=== PATIENT | female | born 1970 | race Caucasian/White ===

== ENCOUNTER → 2017-07-30 | Outpatient (CLI) | payer MEDICAID ==
[~2017-07-30] MED LIST: ALPR.5T PO; ALPR0.5T3 PO; BSP10T; CALC0.253; CALC0.253 PO; CARB400T; CHOL2000 PO; CYCL10TA9 PO; DIAZ5TAB3 PO; DICL50TA4 PO; FLUC200T45 PO; FLUO20CA25; FLUO20CA25 PO; GABA300C PO; HYDR-3720 PO; LEVO137T2; LEVO200T39 PO; LVT.1T PO; MELO7.5T PO; METR500T PO; NCT14P; NITR-65 PO; TRAM50TA2 PO; TRH2T; [UNRECOGNIZED DRUG - CODE]
--- NOTE | 2017-07-30 18:15 | Diagnostic Imaging Report ---
INDICATION: Digital mammogram bilateral screening. This study was compared to the prior exams of 03/10/16 and 02/05/15. At this time, there are no current complaints. The current study was also evaluated with a Computer Aided Detection (CAD) system. FINDINGS: The fibroglandular tissue in both breasts is heterogeneously dense. This does limit the sensitivity of this exam. Overall, there does not appear to have been any significant change when compared to the prior study. No primary or secondary sign of malignancy is noted. IMPRESSION: There is no radiographic evidence for malignancy. ACR BI-RADS Category 1: Negative. Result letter will be mailed to the patient. Note: At least 10% of breast cancer is not imaged by mammography. Dictated by: Dictated on workstation # [id number]
== END ==
LOC: RAD 09:51
PROVIDERS: ATTEND Family Medicine
DX: Z12.31 Encounter for screening mammogram for malignant neoplasm of breast (principal)
CPT/HCPCS: 77067

== ENCOUNTER → 2018-10-06 | Outpatient (CLI) | payer MEDICAID ==
--- NOTE | 2018-10-06 08:47 | Diagnostic Imaging Report ---
PROCEDURE: MR imaging of the brain without contrast. TECHNIQUE: Multiplanar, multisequence MR imaging of the brain was performed without contrast. INDICATION: Worsening headache and visual changes. Correlation is made with prior MRI of the brain from 09/24/2014. FINDINGS: The ventricular size is normal. No hydrocephalus is identified. No diffusion restriction is seen to suggest acute ischemia. The normal expected flow-voids within the carotid siphons identified. Small extra-axial mass along the anterior falx to the left of midline is again noted, similar in size approximately 9 mm. No acute intra-axial or extra-axial hemorrhage is detected. Corpus callosum is unremarkable. The sella and parasellar structures are unremarkable. IMPRESSION: Stable noncontrast MRI of the brain when compared with exam from 09/24/2014. No acute intracranial process is detected. Extra-axial mass along the anterior falx previously noted appear stable and again most likely represents a meningioma. Dictated by: Dictated on workstation # [id number]
== END ==
LOC: RAD 07:52
PROVIDERS: ATTEND Psychiatry & Neurology Neurology
DX: G93.89 Other specified disorders of brain (principal); H53.8 Other visual disturbances; R51 Headache; Z86.011 Personal history of benign neoplasm of the brain
CPT/HCPCS: 70551

== ENCOUNTER 2018-10-30 09:58 | Emergency (ER) | payer MEDICAID ==
[~2018-10-30] VITALS: Ht 170.2 cm; Wt 77.1 kg
--- OUTSIDE RECORDS SUMMARY | 2018-10-30 10:03 | XMS REPORT | Clinical Summary ---
Author Author [facility] Organization [facility] Address Unknown Phone Unavailable Care Team Providers Care Social Professionals Name Role Phone Patrizia Diaz MD Unavailable Source Comments Some departments are not documenting in the electronic medical record. If you do not see the information that you expected, contact Release of Information in the Health Information Management department at [phone] for further assistance in locating additional records.[facility] Allergies Comments Active Allergy Reactions Severity Noted Date Allergy recorded in SMS: Tape~Reactions: BLISTERS Adhesive Tape High 07/27/2006 Allergy recorded in SMS: Aspirin~Reactions: RASH Aspirin 07/27/2006 Allergy recorded in SMS: Iodine~Reactions: BLISTERS Iodine High 07/27/2006 Allergy recorded in SMS: Latex~Reactions: BLISTERS Latex High 07/27/2006 Allergy recorded in SMS: Morphine~Reactions: ANAPHYLAXIS Morphine High 07/27/2006 Allergy recorded in SMS: Penicillin~Reactions: ANAPHYLAXIS Penicillins High 07/27/2006 Medications Not on file Active Problems Not on file Social History Date Tobacco Use Types Packs/Day Years Used Never Assessed Sex Assigned at Date Recorded Not on file Industry Job Start Date Occupation Not on file Not on file Not on file Travel End Travel History Travel Start No recent travel history available. Last Filed Vital Signs Not on file Plan of Treatment Health Maintenance Due Date Last Done Comments PHYSICAL (COMPREHENSIVE) 1977 EXAM HIV SCREENING 1985 DTAP/TDAP VACCINES (1 - 1988 Tdap) CERVICAL CANCER SCREENING 2000 BREAST CANCER SCREENING 2010 INFLUENZA VACCINE 02/16/2019 Results Not on filefrom Last 3 Months
--- OUTSIDE RECORDS SUMMARY | 2018-10-30 10:03 | XMS REPORT | Clinical Summary ---
Author Author [facility] Organization [facility] Address Unknown Phone Unavailable Care Team Providers Care Wellness Rn Name Role Phone PCP Unavailable Allergies Not on File Current Medications Not on file Active Problems Not on file Social History Tobacco Use Types Packs/Day Years Used Date Never Assessed Sex Assigned at Date Recorded Not on file Last Filed Vital Signs Not on file Plan of Treatment Not on file Results Not on filefrom Last 3 Months
--- OUTSIDE RECORDS SUMMARY | 2018-10-30 10:07 | XMS REPORT | Continuity of Care Document ---
Author Organization Unknown Address Unknown Allergies Active Description Code Type Severity Reaction Onset Reported/Identified Relationship to Patient Clinical Status Yes adhesives OA N/A N /A 07/14/2011 Yes Iodine Drug Allergy N/A N/A 07/14/2011 Yes LaMICtal Drug Allergy N/A N/A 07/14/2011 Yes latex OA N/A N/A 07/14/2011 Yes morphine Drug Allergy N/A N/A 07/14/2011 Yes penicillamine Drug Allergy N/ A N/A 07/14/2011 Yes adhesives OA 07/14/2011 Yes Iodine Drug Allergy 07/14/2011 Yes LaMICtal Drug Allergy 07/14/2011 Yes latex OA 07/14/2011 Yes morphine Drug Allergy 07/14/2011 Yes penicillamine Drug Allergy 07/14/2011 Yes aspirin Drug Allergy N/A N/A 09/15/2013 Yes Cymbalta Drug Allergy N/A N/A 09/15/2013 Medications There is no data. Problems Date Dx Coded Attending Type Code Diagnosis Diagnosed By 02/14/2008 ANANYA MCBRIDE PSYD 296.89 MO BIPOLAR II 02/14/2008 ANANYA MCBRIDE PSYD L 301.83 PD BORDERLINE 02/14/2008 ANANYA MCBRIDE PSYD L 309.81 AN PTSD 02/14/2008 ANANYA MCBRIDE PSYD L 296.89 MO BIPOLAR II 02/14/2008 ANANYA MCBRIDE PSYD L 301.83 PD BORDERLINE 02/14/2008 ANANYA MCBRIDE PSYD L 309.81 AN PTSD 02/14/2008 ANANYA MCBRIDE PSYD L 296.89 MO BIPOLAR II 02/14/2008 ANANYA MCBRIDE PSYD L 301.83 PD BORDERLINE 02/14/2008 ANANYA MCBRIDE PSYD L 309.81 AN PTSD 02/14/2008 296.89 MO BIPOLAR II 02/14/2008 301.83 PD BORDERLINE 02/14/2008 309.81 AN PTSD 02/14/2008 ANANYA MCBRIDE PSYD ANN L 296.89 MO BIPOLAR II 02/14/2008 ANANYA MCBRIDE PSYD ANN L 301.83 PD BORDERLINE 02/14/2008 ANANYA MCBRIDE PSYD ANN L 309.81 AN PTSD 02/14/2008 ANANYA MCBRIDE PSYD ANN L 296.89 MO BIPOLAR II 02/14/2008 ANANYA MCBRIDE PSYD ANN L 301.83 PD BORDERLINE 02/14/2008 ANANYA MCBRIDE PSYD ANN L 309.81 AN PTSD 02/14/2008 296.89 MO BIPOLAR II 02/14/2008 301.83 PD BORDERLINE 02/14/2008 309.81 AN PTSD 02/14/2008 296.89 MO BIPOLAR II 02/14/2008 301.83 PD BORDERLINE 02/14/2008 309.81 AN PTSD 02/14/2008 296.89 MO BIPOLAR II 02/14/2008 301.83 PD BORDERLINE 02/14/2008 309.81 AN PTSD 02/14/2008 296.89 MO BIPOLAR II 02/14/2008 301.83 PD BORDERLINE 02/14/2008 309.81 AN PTSD 02/14/2008 296.89 MO BIPOLAR II 02/14/2008 301.83 PD BORDERLINE 02/14/2008 309.81 AN PTSD 02/14/2008 ANANYA MCBRIDE PSYD L 296.89 MO BIPOLAR II 02/14/2008 ANANYA MCBRIDE PSYD L 301.83 PD BORDERLINE 02/14/2008 ANANYA MCBRIDE PSYD ANN L 309.81 AN PTSD 02/14/2008 ANANYA MCBRIDE PSYD ANN L 296.89 MO BIPOLAR II 02/14/2008 ANANYA MCBRIDE PSYD ANN L 301.83 PD BORDERLINE 02/14/2008 ANANYA MCBRIDE PSYD ANN L 309.81 AN PTSD 02/14/2008 ANANYA MCBRIDE PSYD ANN L 296.89 MO BIPOLAR II 02/14/2008 ANANYA MCBRIDE PSYD ANN L 301.83 PD BORDERLINE 02/14/2008 ANANYA MCBRIDE PSYD ANN L 309.81 AN PTSD 02/14/2008 ANANYA MCBRIDE PSYD ANN L 296.89 MO BIPOLAR II 02/14/2008 MCCLEEARY PSYD, CHRISTOPHER L 301.83 PD BORDERLINE 02/14/2008 ANANYA MCBRIDE PSYD ANN L 309.81 AN PTSD 02/14/2008 ANANYA MCBRIDE PSYD ANN L 296.89 MO BIPOLAR II 02/14/2008 ANANYA MCBRIDE PSYD ANN L 301.83 PD BORDERLINE 02/14/2008 ANANYA MCBRIDE PSYD ANN L 309.81 AN PTSD 02/14/2008 ANANYA MCBRIDE PSYD ANN L 296.89 MO BIPOLAR II 02/14/2008 ANANYA MCBRIDE PSYD ANN L 301.83 PD BORDERLINE 02/14/2008 ANANYA MCBRIDE PSYD ANN L 309.81 AN PTSD 02/14/2008 ANANYA MCBRIDE PSYD ANN L 296.89 MO BIPOLAR II 02/14/2008 ANANYA MCBRIDE PSYD ANN L 301.83 PD BORDERLINE 02/14/2008 ANANYA MCBRIDE PSYD ANN L 309.81 AN PTSD 02/14/2008 ANANYA MCBRIDE PSYD ANN L 296.89 MO BIPOLAR II 02/14/2008 ANANYA MCBRIDE PSYD ANN L 301.83 PD BORDERLINE 02/14/2008 ANANYA MCBRIDE PSYD ANN L 309.81 AN PTSD 02/14/2008 ANANYA MCBRIDE PSYD ANN L 296.89 MO BIPOLAR II 02/14/2008 ANANYA MCBRIDE PSYD ANN L 301.83 PD BORDERLINE 02/14/2008 ANANYA MCBRIDE PSYD ANN L 309.81 AN PTSD 02/14/2008 ANANYA MCBRIDE PSYD ANN L 296.89 MO BIPOLAR II 02/14/2008 ANANYA MCBRIDE PSYD ANN L 301.83 PD BORDERLINE 02/14/2008 ANANYA MCBRIDE PSYD ANN L 309.81 AN PTSD 02/14/2008 ANANYA MCBRIDE PSYD ANN L 296.89 MO BIPOLAR II 02/14/2008 ANANYA MCBRIDE PSYD ANN L 301.83 PD BORDERLINE 02/14/2008 ANANYA MCBRIDE PSYD ANN L 309.81 AN PTSD 02/14/2008 ANANYA MCBRIDE PSYD ANN L 296.89 MO BIPOLAR II 02/14/2008 ANANYA MCBRIDE PSYD ANN L 301.83 PD BORDERLINE 02/14/2008 ANANYA MCBRIDE PSYD ANN L 309.81 AN PTSD 02/14/2008 RIOS DO, BOYD K 296.89 MO BIPOLAR II 02/14/2008 RIOS DO, BOYD K 301.83 PD BORDERLINE 02/14/2008 RIOS DO, BOYD K 309.81 AN PTSD 02/14/2008 ANANYA MCBRIDE PSYD ANN L 296.89 MO BIPOLAR II 02/14/2008 ANANYA MCBRIDE PSYD ANN L 301.83 PD BORDERLINE 02/14/2008 ANANYA MCBRIDE PSYD ANN L 309.81 AN PTSD 02/14/2008 ANANYA MCBRIDE PSYD ANN L 296.89 MO BIPOLAR II 02/14/2008 ANANYA MCBRIDE PSYD ANN L 301.83 PD BORDERLINE 02/14/2008 ANANYA MCBRIDE PSYD ANN L 309.81 AN PTSD 02/14/2008 ANANYA MCBRIDE PSYD ANN L 296.89 MO BIPOLAR II 02/14/2008 ANANYA MCBRIDE PSYD ANN L 301.83 PD BORDERLINE 02/14/2008 ANANYA MCBRIDE PSYD ANN L 309.81 AN PTSD 02/14/2008 LIDYA TORRES PA-C M 296.89 MO BIPOLAR II 02/14/2008 LIDYA TORRES PA-C M 301.83 PD BORDERLINE 02/14/2008 LIDYA TORRES PA-C M 309.81 AN PTSD 02/14/2008 ANANYA MCBRIDE PSYD ANN L 296.89 MO BIPOLAR II 02/14/2008 ANANYA MCBRIDE PSYD ANN L 301.83 PD BORDERLINE 02/14/2008 ANANYA MCBRIDE PSYD ANN L 309.81 AN PTSD 02/14/2008 RIOS DO BOYD K 296.89 MO BIPOLAR II 02/14/2008 RIOS DO BOYD K 301.83 PD BORDERLINE 02/14/2008 RIOS DO BOYD K 309.81 AN PTSD 02/14/2008 ANANYA MCBRIDE PSYD ANN L 296.89 MO BIPOLAR II 02/14/2008 ANANYA MCBRIDE PSYD ANN L 301.83 PD BORDERLINE 02/14/2008 ANANYA MCBRIDE PSYD ANN L 309.81 AN PTSD 02/14/2008 ANANYA MCBRIDE PSYD ANN L 296.89 MO BIPOLAR II 02/14/2008 ANANYA MCBRIDE PSYD ANN L 301.83 PD BORDERLINE 02/14/2008 ANANYA MCBRIDE PSYD ANN L 309.81 AN PTSD 02/14/2008 ANANYA MCBRIDE PSYD ANN L 296.89 MO BIPOLAR II 02/14/2008 ANANYA MCBRIDE PSYD ANN L 301.83 PD BORDERLINE 02/14/2008 ANANYA MCBRIDE PSYD ANN L 309.81 AN PTSD 02/14/2008 ANANYA MCBRIDE PSYD ANN L 296.89 MO BIPOLAR II 02/14/2008 ANANYA MCBRIDE PSYD ANN L 301.83 PD BORDERLINE 02/14/2008 ANANYA MCBRIDE PSYD ANN L 309.81 AN PTSD 02/14/2008 ANANYA MCBRIDE PSYD ANN L 296.89 MO BIPOLAR II 02/14/2008 ANANYA MCBRIDE PSYD ANN L 301.83 PD BORDERLINE 02/14/2008 ANANYA MCBRIDE PSYD ANN L 309.81 AN PTSD 02/14/2008 ANANYA MCBRIDE PSYD ANN L 296.89 MO BIPOLAR II 02/14/2008 ANANYA MCBRIDE PSYD ANN L 301.83 PD BORDERLINE 02/14/2008 ANANYA MCBRIDE PSYD ANN L 309.81 AN PTSD 02/14/2008 ANANYA MCBRIDE PSYD ANN L 296.89 MO BIPOLAR II 02/14/2008 ANANYA MCBRIDE PSYD ANN L 301.83 PD BORDERLINE 02/14/2008 ANANYA MCBRIDE PSYD ANN L 309.81 AN PTSD 02/14/2008 RIOS DO, BOYD K 296.89 MO BIPOLAR II 02/14/2008 RIOS DO, BOYD K 301.83 PD BORDERLINE 02/14/2008 RIOS DO, BOYD K 309.81 AN PTSD 02/14/2008 ANANYA MCBRIDE PSYD ANN L 296.89 MO BIPOLAR II 02/14/2008 ANANYA MCBRIDE PSYD ANN L 301.83 PD BORDERLINE 02/14/2008 ANANYA MCBRIDE PSYD ANN L 309.81 AN PTSD 02/14/2008 ANANYA MCBRIDE PSYD ANN L 296.89 MO BIPOLAR II 02/14/2008 ANANYA MCBRIDE PSYD ANN L 301.83 PD BORDERLINE 02/14/2008 ANANYA MCBRIDE PSYD ANN L 309.81 AN PTSD 02/14/2008 ANANYA MCBRIDE PSYD ANN L 296.89 MO BIPOLAR II 02/14/2008 ANANYA MCBRIDE PSYD ANN L 301.83 PD BORDERLINE 02/14/2008 ANANYA MCBRIDE PSYD ANN L 309.81 AN PTSD 02/14/2008 RIOS DO, BOYD K 296.89 MO BIPOLAR II 02/14/2008 RIOS DO, BOYD K 301.83 PD BORDERLINE 02/14/2008 RIOS DO, BOYD K 309.81 AN PTSD 02/14/2008 ANANYA MCBRIDE PSYD ANN L 296.89 MO BIPOLAR II 02/14/2008 ANANYA MCBRIDE PSYD ANN L 301.83 PD BORDERLINE 02/14/2008 ANANYA MCBRIDE PSYD ANN L 309.81 AN PTSD 02/14/2008 ANANYA MCBRIDE PSYD ANN L 296.89 MO BIPOLAR II 02/14/2008 ANANYA MCBRIDE PSYD ANN L 301.83 PD BORDERLINE 02/14/2008 ANANYA MCBRIDE PSYD ANN L 309.81 AN PTSD 02/14/2008 ALISSA PIERRE MD 296.89 MO BIPOLAR II 02/14/2008 ALISSA PIERRE MD 301.83 PD BORDERLINE 02/14/2008 ALISSA PIERRE MD 309.81 AN PTSD 02/14/2008 ANANYA MCBRIDE PSYD ANN L 296.89 MO BIPOLAR II 02/14/2008 ANANYA MCBRIDE PSYD ANN L 301.83 PD BORDERLINE 02/14/2008 ANANYA MCBRIDE PSYD ANN L 309.81 AN PTSD 02/14/2008 ANANYA MCBRIDE PSYD ANN L 296.89 MO BIPOLAR II 02/14/2008 ANANYA MCBRIDE PSYD ANN L 301.83 PD BORDERLINE 02/14/2008 ANANYA MCBRIDE PSYD ANN L 309.81 AN PTSD 02/14/2008 KAYCEE VELA ALTAGRACIA A 296.89 MO BIPOLAR II 02/14/2008 KAYCEE VELA, ALTAGRACIA A 301.83 PD BORDERLINE 02/14/2008 KAYCEE VELA, ALTAGRACIA A 309.81 AN PTSD 02/14/2008 ANANYA MCBRIDE PSYD ANN L 296.89 MO BIPOLAR II 02/14/2008 ANANYA MCBRIDE PSYD ANN L 301.83 PD BORDERLINE 02/14/2008 ANANYA MCBRIDE PSYD ANN L 309.81 AN PTSD 02/14/2008 RIOS DO, BOYD K 296.89 MO BIPOLAR II 02/14/2008 RIOS DO, BOYD K 301.83 PD BORDERLINE 02/14/2008 RIOS DO, BOYD K 309.81 AN PTSD 02/14/2008 ANANYA MCBRIDE PSYD ANN L 296.89 MO BIPOLAR II 02/14/2008 ANANYA MCBRIDE PSYD ANN L 301.83 PD BORDERLINE 02/14/2008 ANANYA MCBRIDE PSYD ANN L 309.81 AN PTSD 02/14/2008 ANANYA MCBRIDE PSYD ANN L 296.89 MO BIPOLAR II 02/14/2008 ANANYA MCBRIDE PSYD ANN L 301.83 PD BORDERLINE 02/14/2008 ANANYA MCBRIDE PSYD ANN L 309.81 AN PTSD 02/14/2008 ANANYA MCBRIDE PSYD ANN L 296.89 MO BIPOLAR II 02/14/2008 ANANYA MCBRIDE PSYD ANN L 301.83 PD BORDERLINE 02/14/2008 ANANYA MCBRIDE PSYD ANN L 309.81 AN PTSD 03/26/2008 ANANYA MCBRIDE PSYD ANN L 296.50 BIPOLAR I DISORDER MOST RECENT EPISODE (OR CURRENT) DEPRESSED UNSPECIFIED 03/26/2008 ANANYA MCBRIDE PSYD ANN L 307.47 SI DYSSOMNIA NOS 03/26/2008 ANANYA MCBRIDE PSYD ANN L 296.50 BIPOLAR I DISORDER MOST RECENT EPISODE (OR CURRENT) DEPRESSED UNSPECIFIED 03/26/2008 ANANYA MCBRIDE PSYD ANN L 307.47 SI DYSSOMNIA NOS 03/26/2008 ANANYA MCBRIDE PSYD ANN L 296.50 BIPOLAR I DISORDER MOST RECENT EPISODE (OR CURRENT) DEPRESSED UNSPECIFIED 03/26/2008 ANANYA MCBRIDE PSYD ANN L 307.47 SI DYSSOMNIA NOS 03/26/2008 296.50 BIPOLAR I DISORDER MOST RECENT EPISODE (OR CURRENT) DEPRESSED UNSPECIFIED 03/26/2008 307.47 SI DYSSOMNIA NOS 03/26/2008 ANANYA MCBRIDE PSYD ANN L 296.50 BIPOLAR I DISORDER MOST RECENT EPISODE (OR CURRENT) DEPRESSED UNSPECIFIED 03/26/2008 ANANYA MCBRIDE PSYD ANN L 307.47 SI DYSSOMNIA NOS 03/26/2008 ANANYA MCBRIDE PSYD ANN L 296.50 BIPOLAR I DISORDER MOST RECENT EPISODE (OR CURRENT) DEPRESSED UNSPECIFIED 03/26/2008 ANANYA MCBRIDE PSYD ANN L 307.47 SI DYSSOMNIA NOS 03/26/2008 296.50 BIPOLAR I DISORDER MOST RECENT EPISODE (OR CURRENT) DEPRESSED UNSPECIFIED 03/26/2008 307.47 SI DYSSOMNIA NOS 03/26/2008 296.50 BIPOLAR I DISORDER MOST RECENT EPISODE (OR CURRENT) DEPRESSED UNSPECIFIED 03/26/2008 307.47 SI DYSSOMNIA NOS 03/26/2008 296.50 BIPOLAR I DISORDER MOST RECENT EPISODE (OR CURRENT) DEPRESSED UNSPECIFIED 03/26/2008 307.47 SI DYSSOMNIA NOS 03/26/2008 296.50 BIPOLAR I DISORDER MOST RECENT EPISODE (OR CURRENT) DEPRESSED UNSPECIFIED 03/26/2008 307.47 SI DYSSOMNIA NOS 03/26/2008 296.50 BIPOLAR I DISORDER MOST RECENT EPISODE (OR CURRENT) DEPRESSED UNSPECIFIED 03/26/2008 307.47 SI DYSSOMNIA NOS 03/26/2008 ANANYA MCBRIDE PSYD ANN L 296.50 BIPOLAR I DISORDER MOST RECENT EPISODE (OR CURRENT) DEPRESSED UNSPECIFIED 03/26/2008 ANANYA MCBRIDE PSYD ANN L 307.47 SI DYSSOMNIA NOS 03/26/2008 ANANYA MCBRIDE PSYD ANN L 296.50 BIPOLAR I DISORDER MOST RECENT EPISODE (OR CURRENT) DEPRESSED UNSPECIFIED 03/26/2008 ANANYA MCBRIDE PSYD ANN L 307.47 SI DYSSOMNIA NOS 03/26/2008 ANANYA MCBRIDE PSYD ANN L 296.50 BIPOLAR I DISORDER MOST RECENT EPISODE (OR CURRENT) DEPRESSED UNSPECIFIED 03/26/2008 ANANYA MCBRIDE PSYD ANN L 307.47 SI DYSSOMNIA NOS 03/26/2008 ANANYA MCBRIDE PSYD ANN L 296.50 BIPOLAR I DISORDER MOST RECENT EPISODE (OR CURRENT) DEPRESSED UNSPECIFIED 03/26/2008 ANANYA MCBRIDE PSYD ANN L 307.47 SI DYSSOMNIA NOS 03/26/2008 ANANYA MCBRIDE PSYD ANN L 296.50 BIPOLAR I DISORDER MOST RECENT EPISODE (OR CURRENT) DEPRESSED UNSPECIFIED 03/26/2008 REED JUAREZ, CHRISTOPHER L 307.47 SI DYSSOMNIA NOS 03/26/2008 REED JUAREZ, CHRISTOPHER L 296.50 BIPOLAR I DISORDER MOST RECENT EPISODE (OR CURRENT) DEPRESSED UNSPECIFIED 03/26/2008 ANANYA MCBRIDE PSYD ANN L 307.47 SI DYSSOMNIA NOS 03/26/2008 REED JUAREZ, CHRISTOPHER L 296.50 BIPOLAR I DISORDER MOST RECENT EPISODE (OR CURRENT) DEPRESSED UNSPECIFIED 03/26/2008 REED JUAREZ CHRISTOPHER L 307.47 SI DYSSOMNIA NOS 03/26/2008 REED JUAREZ, CHRISTOPHER L 296.50 BIPOLAR I DISORDER MOST RECENT EPISODE (OR CURRENT) DEPRESSED UNSPECIFIED 03/26/2008 ANANYA MCBRIDE PSYD ANN L 307.47 SI DYSSOMNIA NOS 03/26/2008 ANANYA MCBRIDE PSYD ANN L 296.50 BIPOLAR I DISORDER MOST RECENT EPISODE (OR CURRENT) DEPRESSED UNSPECIFIED 03/26/2008 ANANYA MCBRIDE PSYD ANN L 307.47 SI DYSSOMNIA NOS 03/26/2008 REED JUAREZ, CHRISTOPHER L 296.50 BIPOLAR I DISORDER MOST RECENT EPISODE (OR CURRENT) DEPRESSED UNSPECIFIED 03/26/2008 ANANYA MCBRIDE PSYD ANN L 307.47 SI DYSSOMNIA NOS 03/26/2008 ANANYA MCBRIDE PSYD ANN L 296.50 BIPOLAR I DISORDER MOST RECENT EPISODE (OR CURRENT) DEPRESSED UNSPECIFIED 03/26/2008 ANANYA MCBRIDE PSYD ANN L 307.47 SI DYSSOMNIA NOS 03/26/2008 REED JUAREZ, CHRISTOPHER L 296.50 BIPOLAR I DISORDER MOST RECENT EPISODE (OR CURRENT) DEPRESSED UNSPECIFIED 03/26/2008 ANANYA MCBRIDE PSYD ANN L 307.47 SI DYSSOMNIA NOS 03/26/2008 BOYD RIOS DO 296.50 BIPOLAR I DISORDER MOST RECENT EPISODE (OR CURRENT) DEPRESSED UNSPECIFIED 03/26/2008 BOYD RIOS DO 307.47 SI DYSSOMNIA NOS 03/26/2008 ANANYA MCBRIDE PSYD ANN L 296.50 BIPOLAR I DISORDER MOST RECENT EPISODE (OR CURRENT) DEPRESSED UNSPECIFIED 03/26/2008 ANANYA MCBRIDE PSYD ANN L 307.47 SI DYSSOMNIA NOS 03/26/2008 ANANYA MCBRIDE PSYD ANN L 296.50 BIPOLAR I DISORDER MOST RECENT EPISODE (OR CURRENT) DEPRESSED UNSPECIFIED 03/26/2008 ANANYA MCBRIDE PSYD ANN L 307.47 SI DYSSOMNIA NOS 03/26/2008 ANANYA MCBRIDE PSYD ANN L 296.50 BIPOLAR I DISORDER MOST RECENT EPISODE (OR CURRENT) DEPRESSED UNSPECIFIED 03/26/2008 ANANYA MCBRIDE PSYD ANN L 307.47 SI DYSSOMNIA NOS 03/26/2008 LIDYA TORRES PA-C M 296.50 BIPOLAR I DISORDER MOST RECENT EPISODE (OR CURRENT) DEPRESSED UNSPECIFIED 03/26/2008 LIDYA TORRES PA-C 307.47 SI DYSSOMNIA NOS 03/26/2008 ANANYA MCBRIDE PSYD ANN L 296.50 BIPOLAR I DISORDER MOST RECENT EPISODE (OR CURRENT) DEPRESSED UNSPECIFIED 03/26/2008 ANANYA MCBRIDE PSYD ANN L 307.47 SI DYSSOMNIA NOS 03/26/2008 BOYD RIOS DO 296.50 BIPOLAR I DISORDER MOST RECENT EPISODE (OR CURRENT) DEPRESSED UNSPECIFIED 03/26/2008 BOYD RIOS DO 307.47 SI DYSSOMNIA NOS 03/26/2008 ANANYA MCBRIDE PSYD ANN L 296.50 BIPOLAR I DISORDER MOST RECENT EPISODE (OR CURRENT) DEPRESSED UNSPECIFIED 03/26/2008 ANANYA MCBRIDE PSYD ANN L 307.47 SI DYSSOMNIA NOS 03/26/2008 ANANYA MCBRIDE PSYD ANN L 296.50 BIPOLAR I DISORDER MOST RECENT EPISODE (OR CURRENT) DEPRESSED UNSPECIFIED 03/26/2008 ANANYA MCBRIDE PSYD ANN L 307.47 SI DYSSOMNIA NOS 03/26/2008 ANANYA MCBRIDE PSYD ANN L 296.50 BIPOLAR I DISORDER MOST RECENT EPISODE (OR CURRENT) DEPRESSED UNSPECIFIED 03/26/2008 ANANYA MCBRIDE PSYD ANN L 307.47 SI DYSSOMNIA NOS 03/26/2008 ANANYA MCBRIDE PSYD ANN L 296.50 BIPOLAR I DISORDER MOST RECENT EPISODE (OR CURRENT) DEPRESSED UNSPECIFIED 03/26/2008 ANANYA MCBRIDE PSYD ANN L 307.47 SI DYSSOMNIA NOS 03/26/2008 ANANYA MCBRIDE PSYD ANN L 296.50 BIPOLAR I DISORDER MOST RECENT EPISODE (OR CURRENT) DEPRESSED UNSPECIFIED 03/26/2008 ANANYA MCBRIDE PSYD ANN L 307.47 SI DYSSOMNIA NOS 03/26/2008 REED CRAIGYD, CHRISTOPHER L 296.50 BIPOLAR I DISORDER MOST RECENT EPISODE (OR CURRENT) DEPRESSED UNSPECIFIED 03/26/2008 ANANYA MCBRIDE PSYD ANN L 307.47 SI DYSSOMNIA NOS 03/26/2008 REED JUAREZ, CHRISTOPHER L 296.50 BIPOLAR I DISORDER MOST RECENT EPISODE (OR CURRENT) DEPRESSED UNSPECIFIED 03/26/2008 ANANYA MCBRIDE PSYD ANN L 307.47 SI DYSSOMNIA NOS 03/26/2008 BOYD RIOS DO K 296.50 BIPOLAR I DISORDER MOST RECENT EPISODE (OR CURRENT) DEPRESSED UNSPECIFIED 03/26/2008 BOYD RIOS DO 307.47 SI DYSSOMNIA NOS 03/26/2008 ANANYA MCBRIDE PSYD ANN L 296.50 BIPOLAR I DISORDER MOST RECENT EPISODE (OR CURRENT) DEPRESSED UNSPECIFIED 03/26/2008 ANANYA MCBRIDE PSYD ANN L 307.47 SI DYSSOMNIA NOS 03/26/2008 ANANYA MCBRIDE PSYD ANN L 296.50 BIPOLAR I DISORDER MOST RECENT EPISODE (OR CURRENT) DEPRESSED UNSPECIFIED 03/26/2008 ANANYA MCBRIDE PSYD ANN L 307.47 SI DYSSOMNIA NOS 03/26/2008 ANANYA MCBRIDE PSYD ANN L 296.50 BIPOLAR I DISORDER MOST RECENT EPISODE (OR CURRENT) DEPRESSED UNSPECIFIED 03/26/2008 ANANYA MCBRIDE PSYD ANN L 307.47 SI DYSSOMNIA NOS 03/26/2008 BOYD RIOS DO K 296.50 BIPOLAR I DISORDER MOST RECENT EPISODE (OR CURRENT) DEPRESSED UNSPECIFIED 03/26/2008 BOYD RIOS DO 307.47 SI DYSSOMNIA NOS 03/26/2008 ANANYA MCBRIDE PSYD ANN L 296.50 BIPOLAR I DISORDER MOST RECENT EPISODE (OR CURRENT) DEPRESSED UNSPECIFIED 03/26/2008 ANANYA MCBRIDE PSYD ANN L 307.47 SI DYSSOMNIA NOS 03/26/2008 ANANYA MCBRIDE PSYD ANN L 296.50 BIPOLAR I DISORDER MOST RECENT EPISODE (OR CURRENT) DEPRESSED UNSPECIFIED 03/26/2008 ANANYA MCBRIDE PSYD ANN L 307.47 SI DYSSOMNIA NOS 03/26/2008 ALISSA PIERRE MD 296.50 BIPOLAR I DISORDER MOST RECENT EPISODE (OR CURRENT) DEPRESSED UNSPECIFIED 03/26/2008 ALISSA PIERRE MD 307.47 SI DYSSOMNIA NOS 03/26/2008 ANANYA MCBRIDE PSYD ANN L 296.50 BIPOLAR I DISORDER MOST RECENT EPISODE (OR CURRENT) DEPRESSED UNSPECIFIED 03/26/2008 ANANYA MCBRIDE PSYD ANN L 307.47 SI DYSSOMNIA NOS 03/26/2008 ANANYA MCBRIDE PSYD ANN L 296.50 BIPOLAR I DISORDER MOST RECENT EPISODE (OR CURRENT) DEPRESSED UNSPECIFIED 03/26/2008 ANANYA MCBRIDE PSYD ANN L 307.47 SI DYSSOMNIA NOS 03/26/2008 KAYCEE VELA, ALTAGRACIA A 296.50 BIPOLAR I DISORDER MOST RECENT EPISODE (OR CURRENT) DEPRESSED UNSPECIFIED 03/26/2008 KAYCEE VELA ALTAGRACIA A 307.47 SI DYSSOMNIA NOS 03/26/2008 ANANYA MCBRIDE PSYD ANN L 296.50 BIPOLAR I DISORDER MOST RECENT EPISODE (OR CURRENT) DEPRESSED UNSPECIFIED 03/26/2008 ANANYA MCBRIDE PSYD ANN L 307.47 SI DYSSOMNIA NOS 03/26/2008 BOYD RIOS DO 296.50 BIPOLAR I DISORDER MOST RECENT EPISODE (OR CURRENT) DEPRESSED UNSPECIFIED 03/26/2008 BOYD RIOS DO 307.47 SI DYSSOMNIA NOS 03/26/2008 ANANYA MCBRIDE PSYD ANN L 296.50 BIPOLAR I DISORDER MOST RECENT EPISODE (OR CURRENT) DEPRESSED UNSPECIFIED 03/26/2008 ANANYA MCBRIDE PSYD ANN L 307.47 SI DYSSOMNIA NOS 03/26/2008 ANANYA MCBRIDE PSYD ANN L 296.50 BIPOLAR I DISORDER MOST RECENT EPISODE (OR CURRENT) DEPRESSED UNSPECIFIED 03/26/2008 ANANYA MCBRIDE PSYD ANN L 307.47 SI DYSSOMNIA NOS 03/26/2008 ANANYA MCBRIDE PSYD ANN L 296.50 BIPOLAR I DISORDER MOST RECENT EPISODE (OR CURRENT) DEPRESSED UNSPECIFIED 03/26/2008 ANANYA MCBRIDE PSYD ANN L 307.47 SI DYSSOMNIA NOS 04/12/2008 ANANYA MCBRIDE PSYD ANN L 300.01 AN PANIC DIS W/O AGORA 04/12/2008 ANANYA MCBRIDE PSYD ANN L 300.01 AN PANIC DIS W/O AGORA 04/12/2008 ANANYA MCBRIDE PSYD ANN L 300.01 AN PANIC DIS W/O AGORA 04/12/2008 300.01 AN PANIC DIS W/O AGORA 04/12/2008 ANANYA MCBRIDE PSYD ANN L 300.01 AN PANIC DIS W/O AGORA 04/12/2008 ANANYA MCBRIDE PSYD ANN L 300.01 AN PANIC DIS W/O AGORA 04/12/2008 300.01 AN PANIC DIS W/O AGORA 04/12/2008 300.01 AN PANIC DIS W/O AGORA 04/12/2008 300.01 AN PANIC DIS W/O AGORA 04/12/2008 300.01 AN PANIC DIS W/O AGORA 04/12/2008 300.01 AN PANIC DIS W/O AGORA 04/12/2008 ANANYA MCBRIDE PSYD ANN L 300.01 AN PANIC DIS W/O AGORA 04/12/2008 ANANYA MCBRIDE PSYD ANN L 300.01 AN PANIC DIS W/O AGORA 04/12/2008 ANANYA MCBRIDE PSYD ANN L 300.01 AN PANIC DIS W/O AGORA 04/12/2008 ANANYA MCBRIDE PSYD ANN L 300.01 AN PANIC DIS W/O AGORA 04/12/2008 ANANYA MCBRIDE PSYD ANN L 300.01 AN PANIC DIS W/O AGORA 04/12/2008 ANANYA MCBRIDE PSYD ANN L 300.01 AN PANIC DIS W/O AGORA 04/12/2008 ANANYA MCBRIDE PSYD ANN L 300.01 AN PANIC DIS W/O AGORA 04/12/2008 ANANYA MCBRIDE PSYD ANN L 300.01 AN PANIC DIS W/O AGORA 04/12/2008 ANANYA MCBRIDE PSYD ANN L 300.01 AN PANIC DIS W/O AGORA 04/12/2008 ANANYA MCBRIDE PSYD ANN L 300.01 AN PANIC DIS W/O AGORA 04/12/2008 ANANYA MCBRIDE PSYD ANN L 300.01 AN PANIC DIS W/O AGORA 04/12/2008 ANANYA MCBRIDE PSYD ANN L 300.01 AN PANIC DIS W/O AGORA 04/12/2008 BOYD RIOS DO K 300.01 AN PANIC DIS W/O AGORA 04/12/2008 ANANYA MCBRIDE PSYD ANN L 300.01 AN PANIC DIS W/O AGORA 04/12/2008 ANANYA MCBRIDE PSYD ANN L 300.01 AN PANIC DIS W/O AGORA 04/12/2008 ANANYA MCBRIDE PSYD ANN L 300.01 AN PANIC DIS W/O AGORA 04/12/2008 LIDYA TORRES PA-C 300.01 AN PANIC DIS W/O AGORA 04/12/2008 ANANYA MCBRIDE PSYD ANN L 300.01 AN PANIC DIS W/O AGORA 04/12/2008 BOYD RIOS DO K 300.01 AN PANIC DIS W/O AGORA 04/12/2008 ANANYA MCBRIDE PSYD ANN L 300.01 AN PANIC DIS W/O AGORA 04/12/2008 ANANYA MCBRIDE PSYD ANN L 300.01 AN PANIC DIS W/O AGORA 04/12/2008 ANANYA MCBRIDE PSYD ANN L 300.01 AN PANIC DIS W/O AGORA 04/12/2008 ANAYNA MCBRIDE PSYD ANN L 300.01 AN PANIC DIS W/O AGORA 04/12/2008 ANANYA MCBRIDE PSYD ANN L 300.01 AN PANIC DIS W/O AGORA 04/12/2008 ANANYA MCBRIDE PSYD ANN L 300.01 AN PANIC DIS W/O AGORA 04/12/2008 ANANYA MCBRIDE PSYD ANN L 300.01 AN PANIC DIS W/O AGORA 04/12/2008 BOYD RIOS DO K 300.01 AN PANIC DIS W/O AGORA 04/12/2008 ANANYA MCBRIDE PSYD ANN L 300.01 AN PANIC DIS W/O AGORA 04/12/2008 ANANYA MCBRIDE PSYD ANN L 300.01 AN PANIC DIS W/O AGORA 04/12/2008 ANANYA MCBRIDE PSYD ANN L 300.01 AN PANIC DIS W/O AGORA 04/12/2008 GABRIEL GARG BOYD K 300.01 AN PANIC DIS W/O AGORA 04/12/2008 ANANYA MCBRIDE PSYD ANN L 300.01 AN PANIC DIS W/O AGORA 04/12/2008 ANANYA MCBRIDE PSYD ANN L 300.01 AN PANIC DIS W/O AGORA 04/12/2008 ALISSA PIERRE MD 300.01 AN PANIC DIS W/O AGORA 04/12/2008 ANANYA MCBRIDE PSYD ANN L 300.01 AN PANIC DIS W/O AGORA 04/12/2008 ANANYA MCBRIDE PSYD ANN L 300.01 AN PANIC DIS W/O AGORA 04/12/2008 ALTAGRACIA BENOIT APRN 300.01 AN PANIC DIS W/O AGORA 04/12/2008 ANANYA MCBRIDE PSYD ANN L 300.01 AN PANIC DIS W/O AGORA 04/12/2008 GABRIEL GARG BOYD K 300.01 AN PANIC DIS W/O AGORA 04/12/2008 ANANYA MCBRIDE PSYD ANN L 300.01 AN PANIC DIS W/O AGORA 04/12/2008 ANANYA MCBRIDE PSYD ANN L 300.01 AN PANIC DIS W/O AGORA 04/12/2008 ANANYA MCBRIDE PSYD ANN L 300.01 AN PANIC DIS W/O AGORA 04/23/2008 ANANYA MCBRIDE PSYD ANN L 296.60 BIPOLAR I DISORDER MOST RECENT EPISODE (OR CURRENT) MIXED UNSPECIFIED 04/23/2008 ANANYA MCBRIDE PSYD ANN L 300.21 AN PANIC DIS W AGORA 04/23/2008 ANANYA MCBRIDE PSYD ANN L 995.20 UNSPECIFIED ADVERSE EFFECT OF UNSPECIFIED DRUG MEDICINAL AND BIOLOGICAL SUBSTANCE 04/23/2008 ANANYA MCBRIDE PSYD ANN L 296.60 BIPOLAR I DISORDER MOST RECENT EPISODE (OR CURRENT) MIXED UNSPECIFIED 04/23/2008 ANANYA MCBRIDE PSYD ANN L 300.21 AN PANIC DIS W AGORA 04/23/2008 ANANYA MCBRIDE PSYD ANN L 995.20 UNSPECIFIED ADVERSE EFFECT OF UNSPECIFIED DRUG MEDICINAL AND BIOLOGICAL SUBSTANCE 04/23/2008 ANANYA MCBRIDE PSYD ANN L 296.60 BIPOLAR I DISORDER MOST RECENT EPISODE (OR CURRENT) MIXED UNSPECIFIED 04/23/2008 ANANYA MCBRIDE PSYD ANN L 300.21 AN PANIC DIS W AGORA 04/23/2008 ANANYA MCBRIDE PSYD ANN L 995.20 UNSPECIFIED ADVERSE EFFECT OF UNSPECIFIED DRUG MEDICINAL AND BIOLOGICAL SUBSTANCE 04/23/2008 296.60 BIPOLAR I DISORDER MOST RECENT EPISODE (OR CURRENT) MIXED UNSPECIFIED 04/23/2008 300.21 AN PANIC DIS W AGORA 04/23/2008 995.20 UNSPECIFIED ADVERSE EFFECT OF UNSPECIFIED DRUG MEDICINAL AND BIOLOGICAL SUBSTANCE 04/23/2008 ANANYA MCBRIDE PSYD ANN L 296.60 BIPOLAR I DISORDER MOST RECENT EPISODE (OR CURRENT) MIXED UNSPECIFIED 04/23/2008 ANANYA MCBRIDE PSYD ANN L 300.21 AN PANIC DIS W AGORA 04/23/2008 ANANYA MCBRIDE PSYD ANN L 995.20 UNSPECIFIED ADVERSE EFFECT OF UNSPECIFIED DRUG MEDICINAL AND BIOLOGICAL SUBSTANCE 04/23/2008 ANANYA MCBRIDE PSYD ANN L 296.60 BIPOLAR I DISORDER MOST RECENT EPISODE (OR CURRENT) MIXED UNSPECIFIED 04/23/2008 ANANYA MCBRIDE PSYD ANN L 300.21 AN PANIC DIS W AGORA 04/23/2008 ANANYA MCBRIDE PSYD ANN L 995.20 UNSPECIFIED ADVERSE EFFECT OF UNSPECIFIED DRUG MEDICINAL AND BIOLOGICAL SUBSTANCE 04/23/2008 296.60 BIPOLAR I DISORDER MOST RECENT EPISODE (OR CURRENT) MIXED UNSPECIFIED 04/23/2008 300.21 AN PANIC DIS W AGORA 04/23/2008 995.20 UNSPECIFIED ADVERSE EFFECT OF UNSPECIFIED DRUG MEDICINAL AND BIOLOGICAL SUBSTANCE 04/23/2008 296.60 BIPOLAR I DISORDER MOST RECENT EPISODE (OR CURRENT) MIXED UNSPECIFIED 04/23/2008 300.21 AN PANIC DIS W AGORA 04/23/2008 995.20 UNSPECIFIED ADVERSE EFFECT OF UNSPECIFIED DRUG MEDICINAL AND BIOLOGICAL SUBSTANCE 04/23/2008 296.60 BIPOLAR I DISORDER MOST RECENT EPISODE (OR CURRENT) MIXED UNSPECIFIED 04/23/2008 300.21 AN PANIC DIS W AGORA 04/23/2008 995.20 UNSPECIFIED ADVERSE EFFECT OF UNSPECIFIED DRUG MEDICINAL AND BIOLOGICAL SUBSTANCE 04/23/2008 296.60 BIPOLAR I DISORDER MOST RECENT EPISODE (OR CURRENT) MIXED UNSPECIFIED 04/23/2008 300.21 AN PANIC DIS W AGORA 04/23/2008 995.20 UNSPECIFIED ADVERSE EFFECT OF UNSPECIFIED DRUG MEDICINAL AND BIOLOGICAL SUBSTANCE 04/23/2008 296.60 BIPOLAR I DISORDER MOST RECENT EPISODE (OR CURRENT) MIXED UNSPECIFIED 04/23/2008 300.21 AN PANIC DIS W AGORA 04/23/2008 995.20 UNSPECIFIED ADVERSE EFFECT OF UNSPECIFIED DRUG MEDICINAL AND BIOLOGICAL SUBSTANCE 04/23/2008 ANANYA MCBRIDE PSYD ANN L 296.60 BIPOLAR I DISORDER MOST RECENT EPISODE (OR CURRENT) MIXED UNSPECIFIED 04/23/2008 ANANYA MCBRIDE PSYD ANN L 300.21 AN PANIC DIS W AGORA 04/23/2008 ANANYA MCBRIDE PSYD ANN L 995.20 UNSPECIFIED ADVERSE EFFECT OF UNSPECIFIED DRUG MEDICINAL AND BIOLOGICAL SUBSTANCE 04/23/2008 ANANYA MCBRIDE PSYD ANN L 296.60 BIPOLAR I DISORDER MOST RECENT EPISODE (OR CURRENT) MIXED UNSPECIFIED 04/23/2008 ANANYA MCBRIDE PSYD ANN L 300.21 AN PANIC DIS W AGORA 04/23/2008 ANANYA MCBRIDE PSYD ANN L 995.20 UNSPECIFIED ADVERSE EFFECT OF UNSPECIFIED DRUG MEDICINAL AND BIOLOGICAL SUBSTANCE 04/23/2008 ANANYA MCBRIDE PSYD ANN L 296.60 BIPOLAR I DISORDER MOST RECENT EPISODE (OR CURRENT) MIXED UNSPECIFIED 04/23/2008 ANANYA MCBRIDE PSYD ANN L 300.21 AN PANIC DIS W AGORA 04/23/2008 ANANYA MCBRIDE PSYD ANN L 995.20 UNSPECIFIED ADVERSE EFFECT OF UNSPECIFIED DRUG MEDICINAL AND BIOLOGICAL SUBSTANCE 04/23/2008 ANANYA MCBRIDE PSYD ANN L 296.60 BIPOLAR I DISORDER MOST RECENT EPISODE (OR CURRENT) MIXED UNSPECIFIED 04/23/2008 ANANYA MCBRIDE PSYD ANN L 300.21 AN PANIC DIS W AGORA 04/23/2008 ANANYA MCBRIDE PSYD ANN L 995.20 UNSPECIFIED ADVERSE EFFECT OF UNSPECIFIED DRUG MEDICINAL AND BIOLOGICAL SUBSTANCE 04/23/2008 ANANYA MCBRIDE PSYD ANN L 296.60 BIPOLAR I DISORDER MOST RECENT EPISODE (OR CURRENT) MIXED UNSPECIFIED 04/23/2008 NAANYA MCBRIDE PSYD ANN L 300.21 AN PANIC DIS W AGORA 04/23/2008 ANANYA MCBRIDE PSYD ANN L 995.20 UNSPECIFIED ADVERSE EFFECT OF UNSPECIFIED DRUG MEDICINAL AND BIOLOGICAL SUBSTANCE 04/23/2008 ANANYA MCBRIDE PSYD ANN L 296.60 BIPOLAR I DISORDER MOST RECENT EPISODE (OR CURRENT) MIXED UNSPECIFIED 04/23/2008 ANANYA MCBRIDE PSYD ANN L 300.21 AN PANIC DIS W AGORA 04/23/2008 ANANYA MCBRIDE PSYD ANN L 995.20 UNSPECIFIED ADVERSE EFFECT OF UNSPECIFIED DRUG MEDICINAL AND BIOLOGICAL SUBSTANCE 04/23/2008 ANANYA MCBRIDE PSYD ANN L 296.60 BIPOLAR I DISORDER MOST RECENT EPISODE (OR CURRENT) MIXED UNSPECIFIED 04/23/2008 ANANYA MCBRIDE PSYD ANN L 300.21 AN PANIC DIS W AGORA 04/23/2008 ANANYA MCBRIDE PSYD ANN L 995.20 UNSPECIFIED ADVERSE EFFECT OF UNSPECIFIED DRUG MEDICINAL AND BIOLOGICAL SUBSTANCE 04/23/2008 ANANYA MCBRIDE PSYD ANN L 296.60 BIPOLAR I DISORDER MOST RECENT EPISODE (OR CURRENT) MIXED UNSPECIFIED 04/23/2008 ANANYA MCBRIDE PSYD ANN L 300.21 AN PANIC DIS W AGORA 04/23/2008 ANANYA MCBRIDE PSYD ANN L 995.20 UNSPECIFIED ADVERSE EFFECT OF UNSPECIFIED DRUG MEDICINAL AND BIOLOGICAL SUBSTANCE 04/23/2008 ANANYA MCBRIDE PSYD ANN L 296.60 BIPOLAR I DISORDER MOST RECENT EPISODE (OR CURRENT) MIXED UNSPECIFIED 04/23/2008 ANANYA MCBRIDE PSYD ANN L 300.21 AN PANIC DIS W AGORA 04/23/2008 ANANYA MCBRIDE PSYD ANN L 995.20 UNSPECIFIED ADVERSE EFFECT OF UNSPECIFIED DRUG MEDICINAL AND BIOLOGICAL SUBSTANCE 04/23/2008 ANANYA MCBRIDE PSYD ANN L 296.60 BIPOLAR I DISORDER MOST RECENT EPISODE (OR CURRENT) MIXED UNSPECIFIED 04/23/2008 ANANYA MCBRIDE PSYD ANN L 300.21 AN PANIC DIS W AGORA 04/23/2008 ANANYA MCBRIDE PSYD ANN L 995.20 UNSPECIFIED ADVERSE EFFECT OF UNSPECIFIED DRUG MEDICINAL AND BIOLOGICAL SUBSTANCE 04/23/2008 ANANYA MCBRIDE PSYD ANN L 296.60 BIPOLAR I DISORDER MOST RECENT EPISODE (OR CURRENT) MIXED UNSPECIFIED 04/23/2008 ANANYA MCBRIDE PSYD ANN L 300.21 AN PANIC DIS W AGORA 04/23/2008 ANANYA MCBRIDE PSYD ANN L 995.20 UNSPECIFIED ADVERSE EFFECT OF UNSPECIFIED DRUG MEDICINAL AND BIOLOGICAL SUBSTANCE 04/23/2008 ANANYA MCBRIDE PSYD ANN L 296.60 BIPOLAR I DISORDER MOST RECENT EPISODE (OR CURRENT) MIXED UNSPECIFIED 04/23/2008 ANANYA MCBRIDE PSYD ANN L 300.21 AN PANIC DIS W AGORA 04/23/2008 ANANYA MCBRIDE PSYD ANN L 995.20 UNSPECIFIED ADVERSE EFFECT OF UNSPECIFIED DRUG MEDICINAL AND BIOLOGICAL SUBSTANCE 04/23/2008 RIOS DO, BOYD K 296.60 BIPOLAR I DISORDER MOST RECENT EPISODE (OR CURRENT) MIXED UNSPECIFIED 04/23/2008 RIOS DO, BOYD K 300.21 AN PANIC DIS W AGORA 04/23/2008 RIOS DO, BOYD K 995.20 UNSPECIFIED ADVERSE EFFECT OF UNSPECIFIED DRUG MEDICINAL AND BIOLOGICAL SUBSTANCE 04/23/2008 ANANYA MCBRIDE PSYD ANN L 296.60 BIPOLAR I DISORDER MOST RECENT EPISODE (OR CURRENT) MIXED UNSPECIFIED 04/23/2008 ANANYA MCBRIDE PSYD ANN L 300.21 AN PANIC DIS W AGORA 04/23/2008 ANANYA MCBRIDE PSYD ANN L 995.20 UNSPECIFIED ADVERSE EFFECT OF UNSPECIFIED DRUG MEDICINAL AND BIOLOGICAL SUBSTANCE 04/23/2008 ANANYA MCBRIDE PSYD ANN L 296.60 BIPOLAR I DISORDER MOST RECENT EPISODE (OR CURRENT) MIXED UNSPECIFIED 04/23/2008 ANANYA MCBRIDE PSYD ANN L 300.21 AN PANIC DIS W AGORA 04/23/2008 ANANYA MCBRIDE PSYD ANN L 995.20 UNSPECIFIED ADVERSE EFFECT OF UNSPECIFIED DRUG MEDICINAL AND BIOLOGICAL SUBSTANCE 04/23/2008 ANANYA MCBRIDE PSYD ANN L 296.60 BIPOLAR I DISORDER MOST RECENT EPISODE (OR CURRENT) MIXED UNSPECIFIED 04/23/2008 ANANYA MCBRIDE PSYD ANN L 300.21 AN PANIC DIS W AGORA 04/23/2008 ANANYA MCBRIDE PSYD ANN L 995.20 UNSPECIFIED ADVERSE EFFECT OF UNSPECIFIED DRUG MEDICINAL AND BIOLOGICAL SUBSTANCE 04/23/2008 LIDYA TORRES PA-C 296.60 BIPOLAR I DISORDER MOST RECENT EPISODE (OR CURRENT) MIXED UNSPECIFIED 04/23/2008 LIDYA TORRES PA-C 300.21 AN PANIC DIS W AGORA 04/23/2008 LIDYA TORRES PA-C 995.20 UNSPECIFIED ADVERSE EFFECT OF UNSPECIFIED DRUG MEDICINAL AND BIOLOGICAL SUBSTANCE 04/23/2008 ANANYA MCBRIDE PSYD ANN L 296.60 BIPOLAR I DISORDER MOST RECENT EPISODE (OR CURRENT) MIXED UNSPECIFIED 04/23/2008 ANANYA MCBRIDE PSYD ANN L 300.21 AN PANIC DIS W AGORA 04/23/2008 ANANYA MCBRIDE PSYD ANN L 995.20 UNSPECIFIED ADVERSE EFFECT OF UNSPECIFIED DRUG MEDICINAL AND BIOLOGICAL SUBSTANCE 04/23/2008 RIOS DO, BOYD K 296.60 BIPOLAR I DISORDER MOST RECENT EPISODE (OR CURRENT) MIXED UNSPECIFIED 04/23/2008 RIOS DO, BOYD K 300.21 AN PANIC DIS W AGORA 04/23/2008 RIOS DO, BOYD K 995.20 UNSPECIFIED ADVERSE EFFECT OF UNSPECIFIED DRUG MEDICINAL AND BIOLOGICAL SUBSTANCE 04/23/2008 ANANYA MCBRIDE PSYD ANN L 296.60 BIPOLAR I DISORDER MOST RECENT EPISODE (OR CURRENT) MIXED UNSPECIFIED 04/23/2008 ANANYA MCBRIDE PSYD ANN L 300.21 AN PANIC DIS W AGORA 04/23/2008 ANANYA MCBRIDE PSYD ANN L 995.20 UNSPECIFIED ADVERSE EFFECT OF UNSPECIFIED DRUG MEDICINAL AND BIOLOGICAL SUBSTANCE 04/23/2008 ANANYA MCBRIDE PSYD ANN L 296.60 BIPOLAR I DISORDER MOST RECENT EPISODE (OR CURRENT) MIXED UNSPECIFIED 04/23/2008 ANANYA MCBRIDE PSYD ANN L 300.21 AN PANIC DIS W AGORA 04/23/2008 ANANYA MCBRIDE PSYD ANN L 995.20 UNSPECIFIED ADVERSE EFFECT OF UNSPECIFIED DRUG MEDICINAL AND BIOLOGICAL SUBSTANCE 04/23/2008 ANANYA MCBRIDE PSYD ANN L 296.60 BIPOLAR I DISORDER MOST RECENT EPISODE (OR CURRENT) MIXED UNSPECIFIED 04/23/2008 ANANYA MCBRIDE PSYD ANN L 300.21 AN PANIC DIS W AGORA 04/23/2008 ANANYA MCBRIDE PSYD ANN L 995.20 UNSPECIFIED ADVERSE EFFECT OF UNSPECIFIED DRUG MEDICINAL AND BIOLOGICAL SUBSTANCE 04/23/2008 ANANYA MCBRIDE PSYD ANN L 296.60 BIPOLAR I DISORDER MOST RECENT EPISODE (OR CURRENT) MIXED UNSPECIFIED 04/23/2008 ANANYA MCBRIDE PSYD ANN L 300.21 AN PANIC DIS W AGORA 04/23/2008 ANANYA MCBRIDE PSYD ANN L 995.20 UNSPECIFIED ADVERSE EFFECT OF UNSPECIFIED DRUG MEDICINAL AND BIOLOGICAL SUBSTANCE 04/23/2008 ANANYA MCBRIDE PSYD ANN L 296.60 BIPOLAR I DISORDER MOST RECENT EPISODE (OR CURRENT) MIXED UNSPECIFIED 04/23/2008 ANANYA MCBRIDE PSYD ANN L 300.21 AN PANIC DIS W AGORA 04/23/2008 ANANYA MCBRIDE PSYD ANN L 995.20 UNSPECIFIED ADVERSE EFFECT OF UNSPECIFIED DRUG MEDICINAL AND BIOLOGICAL SUBSTANCE 04/23/2008 ANANYA MCBRIDE PSYD ANN L 296.60 BIPOLAR I DISORDER MOST RECENT EPISODE (OR CURRENT) MIXED UNSPECIFIED 04/23/2008 ANANYA MCBRIDE PSYD ANN L 300.21 AN PANIC DIS W AGORA 04/23/2008 ANANYA MCBRIDE PSYD ANN L 995.20 UNSPECIFIED ADVERSE EFFECT OF UNSPECIFIED DRUG MEDICINAL AND BIOLOGICAL SUBSTANCE 04/23/2008 ANANYA MCBRIDE PSYD ANN L 296.60 BIPOLAR I DISORDER MOST RECENT EPISODE (OR CURRENT) MIXED UNSPECIFIED 04/23/2008 ANANYA MCBRIDE PSYD ANN L 300.21 AN PANIC DIS W AGORA 04/23/2008 ANANYA MCBRIDE PSYD ANN L 995.20 UNSPECIFIED ADVERSE EFFECT OF UNSPECIFIED DRUG MEDICINAL AND BIOLOGICAL SUBSTANCE 04/23/2008 RIOS DO BOYD K 296.60 BIPOLAR I DISORDER MOST RECENT EPISODE (OR CURRENT) MIXED UNSPECIFIED 04/23/2008 RIOS DO BOYD K 300.21 AN PANIC DIS W AGORA 04/23/2008 RIOS DO BOYD K 995.20 UNSPECIFIED ADVERSE EFFECT OF UNSPECIFIED DRUG MEDICINAL AND BIOLOGICAL SUBSTANCE 04/23/2008 ANANYA MCBRIDE PSYD ANN L 296.60 BIPOLAR I DISORDER MOST RECENT EPISODE (OR CURRENT) MIXED UNSPECIFIED 04/23/2008 ANANYA MCBRIDE PSYD ANN L 300.21 AN PANIC DIS W AGORA 04/23/2008 ANANYA MCBRIDE PSYD ANN L 995.20 UNSPECIFIED ADVERSE EFFECT OF UNSPECIFIED DRUG MEDICINAL AND BIOLOGICAL SUBSTANCE 04/23/2008 ANANYA MCBRIDE PSYD ANN L 296.60 BIPOLAR I DISORDER MOST RECENT EPISODE (OR CURRENT) MIXED UNSPECIFIED 04/23/2008 ANANYA MCBRIDE PSYD ANN L 300.21 AN PANIC DIS W AGORA 04/23/2008 ANANYA MCBRIDE PSYD ANN L 995.20 UNSPECIFIED ADVERSE EFFECT OF UNSPECIFIED DRUG MEDICINAL AND BIOLOGICAL SUBSTANCE 04/23/2008 ANANYA MCBRIDE PSYD ANN L 296.60 BIPOLAR I DISORDER MOST RECENT EPISODE (OR CURRENT) MIXED UNSPECIFIED 04/23/2008 ANANYA MCBRIDE PSYD ANN L 300.21 AN PANIC DIS W AGORA 04/23/2008 ANANYA MCBRIDE PSYD ANN L 995.20 UNSPECIFIED ADVERSE EFFECT OF UNSPECIFIED DRUG MEDICINAL AND BIOLOGICAL SUBSTANCE 04/23/2008 RIOS DO, BOYD K 296.60 BIPOLAR I DISORDER MOST RECENT EPISODE (OR CURRENT) MIXED UNSPECIFIED 04/23/2008 RIOS DO, BOYD K 300.21 AN PANIC DIS W AGORA 04/23/2008 RIOS DO, BOYD K 995.20 UNSPECIFIED ADVERSE EFFECT OF UNSPECIFIED DRUG MEDICINAL AND BIOLOGICAL SUBSTANCE 04/23/2008 ANANYA MCBRIDE PSYD ANN L 296.60 BIPOLAR I DISORDER MOST RECENT EPISODE (OR CURRENT) MIXED UNSPECIFIED 04/23/2008 ANANYA MCBRIDE PSYD ANN L 300.21 AN PANIC DIS W AGORA 04/23/2008 ANANYA MCBRIDE PSYD ANN L 995.20 UNSPECIFIED ADVERSE EFFECT OF UNSPECIFIED DRUG MEDICINAL AND BIOLOGICAL SUBSTANCE 04/23/2008 ANANYA MCBRIDE PSYD ANN L 296.60 BIPOLAR I DISORDER MOST RECENT EPISODE (OR CURRENT) MIXED UNSPECIFIED 04/23/2008 ANANYA MCBRIDE PSYD ANN L 300.21 AN PANIC DIS W AGORA 04/23/2008 ANANYA MCBRIDE PSYD ANN L 995.20 UNSPECIFIED ADVERSE EFFECT OF UNSPECIFIED DRUG MEDICINAL AND BIOLOGICAL SUBSTANCE 04/23/2008 ALISSA PIERRE MD 296.60 BIPOLAR I DISORDER MOST RECENT EPISODE (OR CURRENT) MIXED UNSPECIFIED 04/23/2008 ALISSA PIERRE MD 300.21 AN PANIC DIS W AGORA 04/23/2008 ALISSA PIERRE MD 995.20 UNSPECIFIED ADVERSE EFFECT OF UNSPECIFIED DRUG MEDICINAL AND BIOLOGICAL SUBSTANCE 04/23/2008 ANANYA MCBRIDE PSYD ANN L 296.60 BIPOLAR I DISORDER MOST RECENT EPISODE (OR CURRENT) MIXED UNSPECIFIED 04/23/2008 ANANYA MCBRIDE PSYD ANN L 300.21 AN PANIC DIS W AGORA 04/23/2008 ANANYA MCBRIDE PSYD ANN L 995.20 UNSPECIFIED ADVERSE EFFECT OF UNSPECIFIED DRUG MEDICINAL AND BIOLOGICAL SUBSTANCE 04/23/2008 ANANYA MCBRIDE PSYD ANN L 296.60 BIPOLAR I DISORDER MOST RECENT EPISODE (OR CURRENT) MIXED UNSPECIFIED 04/23/2008 ANANYA MCBRIDE PSYD ANN L 300.21 AN PANIC DIS W AGORA 04/23/2008 ANANYA MCBRIDE PSYD ANN L 995.20 UNSPECIFIED ADVERSE EFFECT OF UNSPECIFIED DRUG MEDICINAL AND BIOLOGICAL SUBSTANCE 04/23/2008 [employer]JOTTE [employer] INSTRUCTOR, ALTAGRACIA A 296.60 BIPOLAR I DISORDER MOST RECENT EPISODE (OR CURRENT) MIXED UNSPECIFIED 04/23/2008 RAJOTTE METEOROLOGY INSTRUCTOR, ALTAGRACIA A 300.21 AN PANIC DIS W AGORA 04/23/2008 RAJOTTE METEOROLOGY INSTRUCTOR, ALTAGRACIA A 995.20 UNSPECIFIED ADVERSE EFFECT OF UNSPECIFIED DRUG MEDICINAL AND BIOLOGICAL SUBSTANCE 04/23/2008 ANANYA MCBRIDE PSYD ANN L 296.60 BIPOLAR I DISORDER MOST RECENT EPISODE (OR CURRENT) MIXED UNSPECIFIED 04/23/2008 ANANYA MCBRIDE PSYD ANN L 300.21 AN PANIC DIS W AGORA 04/23/2008 ANANYA MCBRIDE PSYD ANN L 995.20 UNSPECIFIED ADVERSE EFFECT OF UNSPECIFIED DRUG MEDICINAL AND BIOLOGICAL SUBSTANCE 04/23/2008 RIOS DO, BOYD K 296.60 BIPOLAR I DISORDER MOST RECENT EPISODE (OR CURRENT) MIXED UNSPECIFIED 04/23/2008 RIOS DO, BOYD K 300.21 AN PANIC DIS W AGORA 04/23/2008 RIOS DO, BOYD K 995.20 UNSPECIFIED ADVERSE EFFECT OF UNSPECIFIED DRUG MEDICINAL AND BIOLOGICAL SUBSTANCE 04/23/2008 ANANYA MCBRIDE PSYD ANN L 296.60 BIPOLAR I DISORDER MOST RECENT EPISODE (OR CURRENT) MIXED UNSPECIFIED 04/23/2008 ANANYA MCBRIDE PSYD ANN L 300.21 AN PANIC DIS W AGORA 04/23/2008 ANANYA MCBRIDE PSYD ANN L 995.20 UNSPECIFIED ADVERSE EFFECT OF UNSPECIFIED DRUG MEDICINAL AND BIOLOGICAL SUBSTANCE 04/23/2008 ANANYA MCBRIDE PSYD ANN L 296.60 BIPOLAR I DISORDER MOST RECENT EPISODE (OR CURRENT) MIXED UNSPECIFIED 04/23/2008 ANANYA MCBRIDE PSYD ANN L 300.21 AN PANIC DIS W AGORA 04/23/2008 ANANYA MCBRIDE PSYD ANN L 995.20 UNSPECIFIED ADVERSE EFFECT OF UNSPECIFIED DRUG MEDICINAL AND BIOLOGICAL SUBSTANCE 04/23/2008 ANANYA MCBRIDE PSYD ANN L 296.60 BIPOLAR I DISORDER MOST RECENT EPISODE (OR CURRENT) MIXED UNSPECIFIED 04/23/2008 ANANYA MCBRIDE PSYD ANN L 300.21 AN PANIC DIS W AGORA 04/23/2008 ANANYA MCBRIDE PSYD ANN L 995.20 UNSPECIFIED ADVERSE EFFECT OF UNSPECIFIED DRUG MEDICINAL AND BIOLOGICAL SUBSTANCE 06/12/2008 ANANYA MCBRIDE PSYD ANN L 316 PF PSYCHIC FACTORS MED COND 06/12/2008 ANANYA MCBRIDE PSYD ANN L 346.90 MIGRAINE UNSPECIFIED WITHOUT INTRACTABLE MIGRAINE 06/12/2008 ANANYA MCBRIDE PSYD ANN L 316 PF PSYCHIC FACTORS MED COND 06/12/2008 ANANYA MCBRIDE PSYD ANN L 346.90 MIGRAINE UNSPECIFIED WITHOUT INTRACTABLE MIGRAINE 06/12/2008 ANANYA MCBRIDE PSYD ANN L 316 PF PSYCHIC FACTORS MED COND 06/12/2008 ANANYA MCBRIDE PSYD ANN L 346.90 MIGRAINE UNSPECIFIED WITHOUT INTRACTABLE MIGRAINE 06/12/2008 316 PF PSYCHIC FACTORS MED COND 06/12/2008 346.90 MIGRAINE UNSPECIFIED WITHOUT INTRACTABLE MIGRAINE 06/12/2008 ANANYA MCBRIDE PSYD ANN L 316 PF PSYCHIC FACTORS MED COND 06/12/2008 ANANYA MCBRIDE PSYD ANN L 346.90 MIGRAINE UNSPECIFIED WITHOUT INTRACTABLE MIGRAINE 06/12/2008 ANANYA MCBRIDE PSYD ANN L 316 PF PSYCHIC FACTORS MED COND 06/12/2008 ANANYA MCBRIDE PSYD ANN L 346.90 MIGRAINE UNSPECIFIED WITHOUT INTRACTABLE MIGRAINE 06/12/2008 316 PF PSYCHIC FACTORS MED COND 06/12/2008 346.90 MIGRAINE UNSPECIFIED WITHOUT INTRACTABLE MIGRAINE 06/12/2008 316 PF PSYCHIC FACTORS MED COND 06/12/2008 346.90 MIGRAINE UNSPECIFIED WITHOUT INTRACTABLE MIGRAINE 06/12/2008 316 PF PSYCHIC FACTORS MED COND 06/12/2008 346.90 MIGRAINE UNSPECIFIED WITHOUT INTRACTABLE MIGRAINE 06/12/2008 316 PF PSYCHIC FACTORS MED COND 06/12/2008 346.90 MIGRAINE UNSPECIFIED WITHOUT INTRACTABLE MIGRAINE 06/12/2008 316 PF PSYCHIC FACTORS MED COND 06/12/2008 346.90 MIGRAINE UNSPECIFIED WITHOUT INTRACTABLE MIGRAINE 06/12/2008 MCCLEEARY PSYD, CHRISTOPHER L 316 PF PSYCHIC FACTORS MED COND 06/12/2008 ANANYA MCBRIDE PSYD ANN L 346.90 MIGRAINE UNSPECIFIED WITHOUT INTRACTABLE MIGRAINE 06/12/2008 ANANYA MCBRIDE PSYD ANN L 316 PF PSYCHIC FACTORS MED COND 06/12/2008 ANANYA MCBRIDE PSYD ANN L 346.90 MIGRAINE UNSPECIFIED WITHOUT INTRACTABLE MIGRAINE 06/12/2008 ANANYA MCBRIDE PSYD ANN L 316 PF PSYCHIC FACTORS MED COND 06/12/2008 ANANYA MCBRIDE PSYD ANN L 346.90 MIGRAINE UNSPECIFIED WITHOUT INTRACTABLE MIGRAINE 06/12/2008 ANANYA MCBRIDE PSYD ANN L 316 PF PSYCHIC FACTORS MED COND 06/12/2008 ANANYA MCBRIDE PSYD ANN L 346.90 MIGRAINE UNSPECIFIED WITHOUT INTRACTABLE MIGRAINE 06/12/2008 ANANYA MCBRIDE PSYD ANN L 316 PF PSYCHIC FACTORS MED COND 06/12/2008 ANANYA MCBRIDE PSYD ANN L 346.90 MIGRAINE UNSPECIFIED WITHOUT INTRACTABLE MIGRAINE 06/12/2008 ANANYA MCBRIDE PSYD ANN L 316 PF PSYCHIC FACTORS MED COND 06/12/2008 ANANYA MCBRIDE PSYD ANN L 346.90 MIGRAINE UNSPECIFIED WITHOUT INTRACTABLE MIGRAINE 06/12/2008 ANANYA MCBRIDE PSYD ANN L 316 PF PSYCHIC FACTORS MED COND 06/12/2008 ANANYA MCBRIDE PSYD ANN L 346.90 MIGRAINE UNSPECIFIED WITHOUT INTRACTABLE MIGRAINE 06/12/2008 ANANYA MCBRIDE PSYD ANN L 316 PF PSYCHIC FACTORS MED COND 06/12/2008 ANANYA MCBRIDE PSYD ANN L 346.90 MIGRAINE UNSPECIFIED WITHOUT INTRACTABLE MIGRAINE 06/12/2008 ANANYA MCBRIDE PSYD ANN L 316 PF PSYCHIC FACTORS MED COND 06/12/2008 ANANYA MCBRIDE PSYD ANN L 346.90 MIGRAINE UNSPECIFIED WITHOUT INTRACTABLE MIGRAINE 06/12/2008 ANANYA MCBRIDE PSYD ANN L 316 PF PSYCHIC FACTORS MED COND 06/12/2008 ANANYA MCBRIDE PSYD ANN L 346.90 MIGRAINE UNSPECIFIED WITHOUT INTRACTABLE MIGRAINE 06/12/2008 ANANYA MCBRIDE PSYD ANN L 316 PF PSYCHIC FACTORS MED COND 06/12/2008 ANANYA MCBRIDE PSYD ANN L 346.90 MIGRAINE UNSPECIFIED WITHOUT INTRACTABLE MIGRAINE 06/12/2008 ANANYA MCBRIDE PSYD L 316 PF PSYCHIC FACTORS MED COND 06/12/2008 ANANYA MCBRIDE PSYD ANN L 346.90 MIGRAINE UNSPECIFIED WITHOUT INTRACTABLE MIGRAINE 06/12/2008 RIOS BOYD K 316 PF PSYCHIC FACTORS MED COND 06/12/2008 GABRIEL GARG BOYD K 346.90 MIGRAINE UNSPECIFIED WITHOUT INTRACTABLE MIGRAINE 06/12/2008 ANANYA MCBRIDE PSYD ANN L 316 PF PSYCHIC FACTORS MED COND 06/12/2008 ANANYA MCBRIDE PSYD ANN L 346.90 MIGRAINE UNSPECIFIED WITHOUT INTRACTABLE MIGRAINE 06/12/2008 ANANYA MCBRIDE PSYD ANN L 316 PF PSYCHIC FACTORS MED COND 06/12/2008 ANANYA MCBRIDE PSYD ANN L 346.90 MIGRAINE UNSPECIFIED WITHOUT INTRACTABLE MIGRAINE 06/12/2008 ANANYA MCBRIDE PSYD ANN L 316 PF PSYCHIC FACTORS MED COND 06/12/2008 ANANYA MCBRIDE PSYD ANN L 346.90 MIGRAINE UNSPECIFIED WITHOUT INTRACTABLE MIGRAINE 06/12/2008 LIDYA TORRES PA-C 316 PF PSYCHIC FACTORS MED COND 06/12/2008 LIDYA TORRES PA-C 346.90 MIGRAINE UNSPECIFIED WITHOUT INTRACTABLE MIGRAINE 06/12/2008 ANANYA MCBRIDE PSYD ANN L 316 PF PSYCHIC FACTORS MED COND 06/12/2008 ANANYA MCBRIDE PSYD ANN L 346.90 MIGRAINE UNSPECIFIED WITHOUT INTRACTABLE MIGRAINE 06/12/2008 GABRIEL GARG BOYD K 316 PF PSYCHIC FACTORS MED COND 06/12/2008 GABRIEL GARG BOYD K 346.90 MIGRAINE UNSPECIFIED WITHOUT INTRACTABLE MIGRAINE 06/12/2008 ANANYA MCBRIDE PSYD ANN L 316 PF PSYCHIC FACTORS MED COND 06/12/2008 ANANYA MCBRIDE PSYD ANN L 346.90 MIGRAINE UNSPECIFIED WITHOUT INTRACTABLE MIGRAINE 06/12/2008 ANANYA MCBRIDE PSYD ANN L 316 PF PSYCHIC FACTORS MED COND 06/12/2008 ANANYA MCBRIDE PSYD ANN L 346.90 MIGRAINE UNSPECIFIED WITHOUT INTRACTABLE MIGRAINE 06/12/2008 ANANYA MCBRIDE PSYD ANN L 316 PF PSYCHIC FACTORS MED COND 06/12/2008 ANANYA MCBRIDE PSYD ANN L 346.90 MIGRAINE UNSPECIFIED WITHOUT INTRACTABLE MIGRAINE 06/12/2008 ANANYA MCBRIDE PSYD ANN L 316 PF PSYCHIC FACTORS MED COND 06/12/2008 ANANYA MCBRIDE PSYD ANN L 346.90 MIGRAINE UNSPECIFIED WITHOUT INTRACTABLE MIGRAINE 06/12/2008 ANANYA MCBRIDE PSYD ANN L 316 PF PSYCHIC FACTORS MED COND 06/12/2008 ANANYA MCBRIDE PSYD ANN L 346.90 MIGRAINE UNSPECIFIED WITHOUT INTRACTABLE MIGRAINE 06/12/2008 ANANYA MCBRIDE PSYD ANN L 316 PF PSYCHIC FACTORS MED COND 06/12/2008 ANANYA MCBRIDE PSYD ANN L 346.90 MIGRAINE UNSPECIFIED WITHOUT INTRACTABLE MIGRAINE 06/12/2008 ANANYA MCBRIDE PSYD ANN L 316 PF PSYCHIC FACTORS MED COND 06/12/2008 ANANYA MCBRIDE PSYD ANN L 346.90 MIGRAINE UNSPECIFIED WITHOUT INTRACTABLE MIGRAINE 06/12/2008 BOYD RIOS DO K 316 PF PSYCHIC FACTORS MED COND 06/12/2008 CARMELITA RIOS DOA K 346.90 MIGRAINE UNSPECIFIED WITHOUT INTRACTABLE MIGRAINE 06/12/2008 ANANYA MCBRIDE PSYD ANN L 316 PF PSYCHIC FACTORS MED COND 06/12/2008 ANANYA MCBRIDE PSYD ANN L 346.90 MIGRAINE UNSPECIFIED WITHOUT INTRACTABLE MIGRAINE 06/12/2008 ANANYA MCBRIDE PSYD ANN L 316 PF PSYCHIC FACTORS MED COND 06/12/2008 ANANYA MCBRIDE PSYD ANN L 346.90 MIGRAINE UNSPECIFIED WITHOUT INTRACTABLE MIGRAINE 06/12/2008 ANANYA MCBRIDE PSYD ANN L 316 PF PSYCHIC FACTORS MED COND 06/12/2008 ANANYA MCBRIDE PSYD ANN L 346.90 MIGRAINE UNSPECIFIED WITHOUT INTRACTABLE MIGRAINE 06/12/2008 CARMELITA RIOS DOA K 316 PF PSYCHIC FACTORS MED COND 06/12/2008 GABRIEL GARG BOYD K 346.90 MIGRAINE UNSPECIFIED WITHOUT INTRACTABLE MIGRAINE 06/12/2008 ANANYA MCBRIDE PSYD ANN L 316 PF PSYCHIC FACTORS MED COND 06/12/2008 ANANYA MCBRIDE PSYD ANN L 346.90 MIGRAINE UNSPECIFIED WITHOUT INTRACTABLE MIGRAINE 06/12/2008 ANANYA MCBRIDE PSYD ANN L 316 PF PSYCHIC FACTORS MED COND 06/12/2008 ANANYA MCBRIDE PSYD ANN L 346.90 MIGRAINE UNSPECIFIED WITHOUT INTRACTABLE MIGRAINE 06/12/2008 ALISSA PIERRE MD 316 PF PSYCHIC FACTORS MED COND 06/12/2008 ALISSA PIERRE MD 346.90 MIGRAINE UNSPECIFIED WITHOUT INTRACTABLE MIGRAINE 06/12/2008 ANANYA MCBRIDE PSYD ANN L 316 PF PSYCHIC FACTORS MED COND 06/12/2008 ANANYA MCBRIDE PSYD ANN L 346.90 MIGRAINE UNSPECIFIED WITHOUT INTRACTABLE MIGRAINE 06/12/2008 ANANYA MCBRIDE PSYD ANN L 316 PF PSYCHIC FACTORS MED COND 06/12/2008 ANANYA MCBRIDE PSYD ANN L 346.90 MIGRAINE UNSPECIFIED WITHOUT INTRACTABLE MIGRAINE 06/12/2008 [employer]JOTTE [employer] INSTRUCTOR, ALTAGRACIA A 316 PF PSYCHIC FACTORS MED COND 06/12/2008 RAJOTTE METEOROLOGY INSTRUCTOR, ALTAGRACIA A 346.90 MIGRAINE UNSPECIFIED WITHOUT INTRACTABLE MIGRAINE 06/12/2008 ANANYA MCBRIDE PSYD ANN L 316 PF PSYCHIC FACTORS MED COND 06/12/2008 ANANYA MCBRIDE PSYD ANN L 346.90 MIGRAINE UNSPECIFIED WITHOUT INTRACTABLE MIGRAINE 06/12/2008 RIOS DO, BOYD K 316 PF PSYCHIC FACTORS MED COND 06/12/2008 RIOS DO, BYOD K 346.90 MIGRAINE UNSPECIFIED WITHOUT INTRACTABLE MIGRAINE 06/12/2008 ANANYA MCBRIDE PSYD ANN L 316 PF PSYCHIC FACTORS MED COND 06/12/2008 ANANYA MCBRIDE PSYD ANN L 346.90 MIGRAINE UNSPECIFIED WITHOUT INTRACTABLE MIGRAINE 06/12/2008 ANANYA MCBRIDE PSYD ANN L 316 PF PSYCHIC FACTORS MED COND 06/12/2008 ANANYA MCBRIDE PSYD ANN L 346.90 MIGRAINE UNSPECIFIED WITHOUT INTRACTABLE MIGRAINE 06/12/2008 ANANYA MCBRIDE PSYD ANN L 316 PF PSYCHIC FACTORS MED COND 06/12/2008 ANANYA MCBRIDE PSYD ANN L 346.90 MIGRAINE UNSPECIFIED WITHOUT INTRACTABLE MIGRAINE 08/07/2008 ANANYA MCBRIDE PSYD ANN L V58.69 MEDICATION HIGH RISK 08/07/2008 ANANYA MCBRIDE PSYD ANN L V58.69 MEDICATION HIGH RISK 08/07/2008 ANANYA MCBRIDE PSYD L V58.69 MEDICATION HIGH RISK 08/07/2008 V58.69 MEDICATION HIGH RISK 08/07/2008 ANANYA MCBRIDE PSYD ANN L V58.69 MEDICATION HIGH RISK 08/07/2008 ANANYA MCBRIDE PSYD ANN L V58.69 MEDICATION HIGH RISK 08/07/2008 V58.69 MEDICATION HIGH RISK 08/07/2008 V58.69 MEDICATION HIGH RISK 08/07/2008 V58.69 MEDICATION HIGH RISK 08/07/2008 V58.69 MEDICATION HIGH RISK 08/07/2008 V58.69 MEDICATION HIGH RISK 08/07/2008 ANANYA MCBRIDE PSYD ANN L V58.69 MEDICATION HIGH RISK 08/07/2008 REED JUAREZ, CHRISTOPHER L V58.69 MEDICATION HIGH RISK 08/07/2008 ANANYA MCBRIDE PSYD ANN L V58.69 MEDICATION HIGH RISK 08/07/2008 REED JUAREZ, CHRISTOPHER L V58.69 MEDICATION HIGH RISK 08/07/2008 ANANYA MCBRIDE PSYD ANN L V58.69 MEDICATION HIGH RISK 08/07/2008 ANANYA MCBRIDE PSYD ANN L V58.69 MEDICATION HIGH RISK 08/07/2008 ANANYA MCBRIDE PSYD ANN L V58.69 MEDICATION HIGH RISK 08/07/2008 ANANYA MCBRIDE PSYD ANN L V58.69 MEDICATION HIGH RISK 08/07/2008 ANANYA MCBRIDE PSYD ANN L V58.69 MEDICATION HIGH RISK 08/07/2008 REED JUAREZ, CHRISTOPHER L V58.69 MEDICATION HIGH RISK 08/07/2008 ANANYA MCBRIDE PSYD ANN L V58.69 MEDICATION HIGH RISK 08/07/2008 ANANYA MCBRIDE PSYD ANN L V58.69 MEDICATION HIGH RISK 08/07/2008 RIOS DO BOYD K V58.69 MEDICATION HIGH RISK 08/07/2008 ANANYA MCBRIDE PSYD ANN L V58.69 MEDICATION HIGH RISK 08/07/2008 ANANYA MCBRIDE PSYD ANN L V58.69 MEDICATION HIGH RISK 08/07/2008 ANANYA MCBRIDE PSYD ANN L V58.69 MEDICATION HIGH RISK 08/07/2008 LIDYA TORRES PA-C V58.69 MEDICATION HIGH RISK 08/07/2008 ANANYA MCBRIDE PSYD ANN L V58.69 MEDICATION HIGH RISK 08/07/2008 RIOS DO BOYD K V58.69 MEDICATION HIGH RISK 08/07/2008 ANANYA MCBRIDE PSYD ANN L V58.69 MEDICATION HIGH RISK 08/07/2008 ANANYA MCBRIDE PSYD ANN L V58.69 MEDICATION HIGH RISK 08/07/2008 REED JUAREZ, CHRISTOPHER L V58.69 MEDICATION HIGH RISK 08/07/2008 REED JUAREZ, CHRISTOPHER L V58.69 MEDICATION HIGH RISK 08/07/2008 REED JUARZE, CHRISTOPHER L V58.69 MEDICATION HIGH RISK 08/07/2008 REED JUAREZ, CHRISTOPHER L V58.69 MEDICATION HIGH RISK 08/07/2008 REED JUAREZ, CHRISTOPHER L V58.69 MEDICATION HIGH RISK 08/07/2008 RIOS DO BOYD K V58.69 MEDICATION HIGH RISK 08/07/2008 REED JUAREZ, CHRISTOPHER L V58.69 MEDICATION HIGH RISK 08/07/2008 ANANYA MCBRIDE PSYD ANN L V58.69 MEDICATION HIGH RISK 08/07/2008 REED JUAREZ, CHRISTOPHER L V58.69 MEDICATION HIGH RISK 08/07/2008 RIOS DO BOYD K V58.69 MEDICATION HIGH RISK 08/07/2008 ANANYA MCBRIDE PSYD ANN L V58.69 MEDICATION HIGH RISK 08/07/2008 REED JUAREZ, CHRISTOPHER L V58.69 MEDICATION HIGH RISK 08/07/2008 ALISSA PIERRE MD V58.69 MEDICATION HIGH RISK 08/07/2008 ANANYA MCBRIDE PSYD ANN L V58.69 MEDICATION HIGH RISK 08/07/2008 ANANYA MCBRIDE PSYD ANN L V58.69 MEDICATION HIGH RISK 08/07/2008 ALTAGRACIA BENOIT APRN V58.69 MEDICATION HIGH RISK 08/07/2008 ANANYA MCBRIDE PSYD ANN L V58.69 MEDICATION HIGH RISK 08/07/2008 RIOS DO, BOYD K V58.69 MEDICATION HIGH RISK 08/07/2008 ANANYA MCBRIDE PSYD ANN L V58.69 MEDICATION HIGH RISK 08/07/2008 ANANYA MCBRIDE PSYD ANN L V58.69 MEDICATION HIGH RISK 08/07/2008 ANANYA MCBRIDE PSYD ANN L V58.69 MEDICATION HIGH RISK 12/28/2008 ANANYA MCBRIDE PSYD ANN L V61.10 UNSPECIFIED COUNSELING FOR MARITAL AND PARTNER PROBLEMS 12/28/2008 ANANYA MCBRIDE PSYD ANN L V61.10 UNSPECIFIED COUNSELING FOR MARITAL AND PARTNER PROBLEMS 12/28/2008 ANANYA MCBRIDE PSYD ANN L V61.10 UNSPECIFIED COUNSELING FOR MARITAL AND PARTNER PROBLEMS 12/28/2008 V61.10 UNSPECIFIED COUNSELING FOR MARITAL AND PARTNER PROBLEMS 12/28/2008 ANANYA MCBRIDE PSYD ANN L V61.10 UNSPECIFIED COUNSELING FOR MARITAL AND PARTNER PROBLEMS 12/28/2008 ANANYA MCBRIDE PSYD ANN L V61.10 UNSPECIFIED COUNSELING FOR MARITAL AND PARTNER PROBLEMS 12/28/2008 V61.10 UNSPECIFIED COUNSELING FOR MARITAL AND PARTNER PROBLEMS 12/28/2008 V61.10 UNSPECIFIED COUNSELING FOR MARITAL AND PARTNER PROBLEMS 12/28/2008 V61.10 UNSPECIFIED COUNSELING FOR MARITAL AND PARTNER PROBLEMS 12/28/2008 V61.10 UNSPECIFIED COUNSELING FOR MARITAL AND PARTNER PROBLEMS 12/28/2008 V61.10 UNSPECIFIED COUNSELING FOR MARITAL AND PARTNER PROBLEMS 12/28/2008 ANANYA MCBRIDE PSYD ANN L V61.10 UNSPECIFIED COUNSELING FOR MARITAL AND PARTNER PROBLEMS 12/28/2008 ANANYA MCBRIDE PSYD ANN L V61.10 UNSPECIFIED COUNSELING FOR MARITAL AND PARTNER PROBLEMS 12/28/2008 ANANYA MCBRIDE PSYD ANN L V61.10 UNSPECIFIED COUNSELING FOR MARITAL AND PARTNER PROBLEMS 12/28/2008 ANANYA MCBRIDE PSYD ANN L V61.10 UNSPECIFIED COUNSELING FOR MARITAL AND PARTNER PROBLEMS 12/28/2008 ANANYA MCBRIDE PSYD ANN L V61.10 UNSPECIFIED COUNSELING FOR MARITAL AND PARTNER PROBLEMS 12/28/2008 ANANYA MCBRIDE PSYD ANN L V61.10 UNSPECIFIED COUNSELING FOR MARITAL AND PARTNER PROBLEMS 12/28/2008 ANANYA MCBRIDE PSYD ANN L V61.10 UNSPECIFIED COUNSELING FOR MARITAL AND PARTNER PROBLEMS 12/28/2008 ANANYA MCBRIDE PSYD ANN L V61.10 UNSPECIFIED COUNSELING FOR MARITAL AND PARTNER PROBLEMS 12/28/2008 ANANYA MCBRIDE PSYD ANN L V61.10 UNSPECIFIED COUNSELING FOR MARITAL AND PARTNER PROBLEMS 12/28/2008 ANANYA MCBRIDE PSYD ANN L V61.10 UNSPECIFIED COUNSELING FOR MARITAL AND PARTNER PROBLEMS 12/28/2008 ANANYA MCBRIDE PSYD ANN L V61.10 UNSPECIFIED COUNSELING FOR MARITAL AND PARTNER PROBLEMS 12/28/2008 ANANYA MCBRIDE PSYD ANN L V61.10 UNSPECIFIED COUNSELING FOR MARITAL AND PARTNER PROBLEMS 12/28/2008 CARMELITA RIOS DOA K V61.10 UNSPECIFIED COUNSELING FOR MARITAL AND PARTNER PROBLEMS 12/28/2008 AANNYA MCBRIDE PSYD ANN L V61.10 UNSPECIFIED COUNSELING FOR MARITAL AND PARTNER PROBLEMS 12/28/2008 ANANYA MCBRIDE PSYD ANN L V61.10 UNSPECIFIED COUNSELING FOR MARITAL AND PARTNER PROBLEMS 12/28/2008 ANANYA MCBRIDE PSYD ANN L V61.10 UNSPECIFIED COUNSELING FOR MARITAL AND PARTNER PROBLEMS 12/28/2008 LIDYA TORRES PA-C V61.10 UNSPECIFIED COUNSELING FOR MARITAL AND PARTNER PROBLEMS 12/28/2008 ANANYA MCBRIDE PSYD L V61.10 UNSPECIFIED COUNSELING FOR MARITAL AND PARTNER PROBLEMS 12/28/2008 BOYD RIOS DO K V61.10 UNSPECIFIED COUNSELING FOR MARITAL AND PARTNER PROBLEMS 12/28/2008 ANANYA MCBRIDE PSYD ANN L V61.10 UNSPECIFIED COUNSELING FOR MARITAL AND PARTNER PROBLEMS 12/28/2008 ANANYA MCBRIDE PSYD ANN L V61.10 UNSPECIFIED COUNSELING FOR MARITAL AND PARTNER PROBLEMS 12/28/2008 ANANYA MCBRIDE PSYD ANN L V61.10 UNSPECIFIED COUNSELING FOR MARITAL AND PARTNER PROBLEMS 12/28/2008 ANANYA MCBRIDE PSYD ANN L V61.10 UNSPECIFIED COUNSELING FOR MARITAL AND PARTNER PROBLEMS 12/28/2008 ANANYA MCBRIDE PSYD ANN L V61.10 UNSPECIFIED COUNSELING FOR MARITAL AND PARTNER PROBLEMS 12/28/2008 ANANYA MCBRIDE PSYD L V61.10 UNSPECIFIED COUNSELING FOR MARITAL AND PARTNER PROBLEMS 12/28/2008 ANANYA MCBRIDE PSYD ANN L V61.10 UNSPECIFIED COUNSELING FOR MARITAL AND PARTNER PROBLEMS 12/28/2008 CARMELITA RIOS DOA K V61.10 UNSPECIFIED COUNSELING FOR MARITAL AND PARTNER PROBLEMS 12/28/2008 ANANYA MCBRIDE PSYD ANN L V61.10 UNSPECIFIED COUNSELING FOR MARITAL AND PARTNER PROBLEMS 12/28/2008 ANANYA MCBRIDE PSYD ANN L V61.10 UNSPECIFIED COUNSELING FOR MARITAL AND PARTNER PROBLEMS 12/28/2008 ANANYA MCBRIDE PSYD ANN L V61.10 UNSPECIFIED COUNSELING FOR MARITAL AND PARTNER PROBLEMS 12/28/2008 CARMELITA RIOS DOA K V61.10 UNSPECIFIED COUNSELING FOR MARITAL AND PARTNER PROBLEMS 12/28/2008 ANANYA MCBRIDE PSYD ANN L V61.10 UNSPECIFIED COUNSELING FOR MARITAL AND PARTNER PROBLEMS 12/28/2008 ANANYA MCBRIDE PSYD ANN L V61.10 UNSPECIFIED COUNSELING FOR MARITAL AND PARTNER PROBLEMS 12/28/2008 ALISSA PIERRE MD V61.10 UNSPECIFIED COUNSELING FOR MARITAL AND PARTNER PROBLEMS 12/28/2008 ANANYA MCBRIDE PSYD ANN L V61.10 UNSPECIFIED COUNSELING FOR MARITAL AND PARTNER PROBLEMS 12/28/2008 ANANYA MCBRIDE PSYD ANN L V61.10 UNSPECIFIED COUNSELING FOR MARITAL AND PARTNER PROBLEMS 12/28/2008 ALTAGRACIA BENOIT APRN V61.10 UNSPECIFIED COUNSELING FOR MARITAL AND PARTNER PROBLEMS 12/28/2008 ANANYA MCBRIDE PSYD ANN L V61.10 UNSPECIFIED COUNSELING FOR MARITAL AND PARTNER PROBLEMS 12/28/2008 BOYD RIOS DO V61.10 UNSPECIFIED COUNSELING FOR MARITAL AND PARTNER PROBLEMS 12/28/2008 ANANYA MCBRIDE PSYD ANN L V61.10 UNSPECIFIED COUNSELING FOR MARITAL AND PARTNER PROBLEMS 12/28/2008 ANANYA MCBRIDE PSYD ANN L V61.10 UNSPECIFIED COUNSELING FOR MARITAL AND PARTNER PROBLEMS 12/28/2008 ANANYA MCBRIDE PSYD ANN L V61.10 UNSPECIFIED COUNSELING FOR MARITAL AND PARTNER PROBLEMS 01/22/2009 ANANYA MCBRIDE PSYD ANN L 244.0 POSTSURGICAL HYPOTHYROIDISM 01/22/2009 ANANYA MCBRIDE PSYD ANN L 244.0 POSTSURGICAL HYPOTHYROIDISM 01/22/2009 ANANYA MCBRIDE PSYD ANN L 244.0 POSTSURGICAL HYPOTHYROIDISM 01/22/2009 244.0 POSTSURGICAL HYPOTHYROIDISM 01/22/2009 ANANYA MCBRIDE PSYD ANN L 244.0 POSTSURGICAL HYPOTHYROIDISM 01/22/2009 ANANYA MCBRIDE PSYD ANN L 244.0 POSTSURGICAL HYPOTHYROIDISM 01/22/2009 244.0 POSTSURGICAL HYPOTHYROIDISM 01/22/2009 244.0 POSTSURGICAL HYPOTHYROIDISM 01/22/2009 244.0 POSTSURGICAL HYPOTHYROIDISM 01/22/2009 244.0 POSTSURGICAL HYPOTHYROIDISM 01/22/2009 244.0 POSTSURGICAL HYPOTHYROIDISM 01/22/2009 ANANYA MCBRIDE PSYD ANN L 244.0 POSTSURGICAL HYPOTHYROIDISM 01/22/2009 ANANYA MCBRIDE PSYD ANN L 244.0 POSTSURGICAL HYPOTHYROIDISM 01/22/2009 ANANYA MCBRIDE PSYD ANN L 244.0 POSTSURGICAL HYPOTHYROIDISM 01/22/2009 ANANAY MCBRIDE PSYD ANN L 244.0 POSTSURGICAL HYPOTHYROIDISM 01/22/2009 ANANYA MCBRIDE PSYD ANN L 244.0 POSTSURGICAL HYPOTHYROIDISM 01/22/2009 ANANYA MCBRIDE PSYD ANN L 244.0 POSTSURGICAL HYPOTHYROIDISM 01/22/2009 ANANYA MCBRIDE PSYD ANN L 244.0 POSTSURGICAL HYPOTHYROIDISM 01/22/2009 ANANYA MCBRIDE PSYD ANN L 244.0 POSTSURGICAL HYPOTHYROIDISM 01/22/2009 ANANYA MCBRIDE PSYD ANN L 244.0 POSTSURGICAL HYPOTHYROIDISM 01/22/2009 ANANYA MCBRIDE PSYD ANN L 244.0 POSTSURGICAL HYPOTHYROIDISM 01/22/2009 ANANYA MCBRIDE PSYD ANN L 244.0 POSTSURGICAL HYPOTHYROIDISM 01/22/2009 ANANYA MCBRIDE PSYD ANN L 244.0 POSTSURGICAL HYPOTHYROIDISM 01/22/2009 BOYD RIOS DO K 244.0 POSTSURGICAL HYPOTHYROIDISM 01/22/2009 ANANYA MCBRIDE PSYD ANN L 244.0 POSTSURGICAL HYPOTHYROIDISM 01/22/2009 ANANYA MCBRIDE PSYD ANN L 244.0 POSTSURGICAL HYPOTHYROIDISM 01/22/2009 ANANYA MCBRIDE PSYD ANN L 244.0 POSTSURGICAL HYPOTHYROIDISM 01/22/2009 LIDYA TORRES PA-C 244.0 POSTSURGICAL HYPOTHYROIDISM 01/22/2009 ANANYA MCBRIDE PSYD ANN L 244.0 POSTSURGICAL HYPOTHYROIDISM 01/22/2009 BOYD RIOS DO K 244.0 POSTSURGICAL HYPOTHYROIDISM 01/22/2009 ANANYA MCBRIDE PSYD ANN L 244.0 POSTSURGICAL HYPOTHYROIDISM 01/22/2009 ANANYA MCBRIDE PSYD ANN L 244.0 POSTSURGICAL HYPOTHYROIDISM 01/22/2009 ANANYA MCBRIDE PSYD ANN L 244.0 POSTSURGICAL HYPOTHYROIDISM 01/22/2009 ANANYA MCBRIDE PSYD ANN L 244.0 POSTSURGICAL HYPOTHYROIDISM 01/22/2009 ANANYA MCBRIDE PSYD ANN L 244.0 POSTSURGICAL HYPOTHYROIDISM 01/22/2009 ANANYA MCBRIDE PSYD ANN L 244.0 POSTSURGICAL HYPOTHYROIDISM 01/22/2009 ANANYA MCBRIDE PSYD ANN L 244.0 POSTSURGICAL HYPOTHYROIDISM 01/22/2009 GABRIEL GARG, BOYD K 244.0 POSTSURGICAL HYPOTHYROIDISM 01/22/2009 ANANYA MCBRIDE PSYD ANN L 244.0 POSTSURGICAL HYPOTHYROIDISM 01/22/2009 ANANYA MCBRIDE PSYD ANN L 244.0 POSTSURGICAL HYPOTHYROIDISM 01/22/2009 ANANYA MCBRIDE PSYD ANN L 244.0 POSTSURGICAL HYPOTHYROIDISM 01/22/2009 RIOS , BOYD K 244.0 POSTSURGICAL HYPOTHYROIDISM 01/22/2009 ANANYA MCBRIDE PSYD ANN L 244.0 POSTSURGICAL HYPOTHYROIDISM 01/22/2009 ANANYA MCBRIDE PSYD ANN L 244.0 POSTSURGICAL HYPOTHYROIDISM 01/22/2009 ALISSA PIERRE MD 244.0 POSTSURGICAL HYPOTHYROIDISM 01/22/2009 ANANYA MCBRIDE PSYD ANN L 244.0 POSTSURGICAL HYPOTHYROIDISM 01/22/2009 ANANYA MCBRIDE PSYD ANN L 244.0 POSTSURGICAL HYPOTHYROIDISM 01/22/2009 ALTAGRACIA BENOIT APRN 244.0 POSTSURGICAL HYPOTHYROIDISM 01/22/2009 ANANYA MCBRIDE PSYD ANN L 244.0 POSTSURGICAL HYPOTHYROIDISM 01/22/2009 GABRIEL GARG, BOYD K 244.0 POSTSURGICAL HYPOTHYROIDISM 01/22/2009 ANANYA MCBRIDE PSYD ANN L 244.0 POSTSURGICAL HYPOTHYROIDISM 01/22/2009 ANANYA MCBRIDE PSYD ANN L 244.0 POSTSURGICAL HYPOTHYROIDISM 01/22/2009 ANANYA MCBRIDE PSYD ANN L 244.0 POSTSURGICAL HYPOTHYROIDISM 04/16/2009 ANANYA MCBRIDE PSYD L 296.40 MO BIPOLAR MANIC UNSPECIFIED 04/16/2009 ANANYA MCBRIDE PSYD L 296.40 MO BIPOLAR MANIC UNSPECIFIED 04/16/2009 ANANYA MCBRIDE PSYD ANN L 296.40 MO BIPOLAR MANIC UNSPECIFIED 04/16/2009 296.40 MO BIPOLAR MANIC UNSPECIFIED 04/16/2009 ANANYA MCBRIDE PSYD ANN L 296.40 MO BIPOLAR MANIC UNSPECIFIED 04/16/2009 ANANYA MCBRIDE PSYD ANN L 296.40 MO BIPOLAR MANIC UNSPECIFIED 04/16/2009 296.40 MO BIPOLAR MANIC UNSPECIFIED 04/16/2009 296.40 MO BIPOLAR MANIC UNSPECIFIED 04/16/2009 296.40 MO BIPOLAR MANIC UNSPECIFIED 04/16/2009 296.40 MO BIPOLAR MANIC UNSPECIFIED 04/16/2009 296.40 MO BIPOLAR MANIC UNSPECIFIED 04/16/2009 ANANYA MCBRIDE PSYD ANN L 296.40 MO BIPOLAR MANIC UNSPECIFIED 04/16/2009 ANANYA MCBRIDE PSYD ANN L 296.40 MO BIPOLAR MANIC UNSPECIFIED 04/16/2009 ANANYA MCBRIDE PSYD ANN L 296.40 MO BIPOLAR MANIC UNSPECIFIED 04/16/2009 ANANYA MCBRIDE PSYD ANN L 296.40 MO BIPOLAR MANIC UNSPECIFIED 04/16/2009 ANANYA MCBRIDE PSYD ANN L 296.40 MO BIPOLAR MANIC UNSPECIFIED 04/16/2009 ANANYA MCBRIDE PSYD ANN L 296.40 MO BIPOLAR MANIC UNSPECIFIED 04/16/2009 ANANYA MCBRIDE PSYD ANN L 296.40 MO BIPOLAR MANIC UNSPECIFIED 04/16/2009 ANANYA MCBRIDE PSYD ANN L 296.40 MO BIPOLAR MANIC UNSPECIFIED 04/16/2009 ANANYA MCBRIDE PSYD ANN L 296.40 MO BIPOLAR MANIC UNSPECIFIED 04/16/2009 ANANYA MCBRIDE PSYD ANN L 296.40 MO BIPOLAR MANIC UNSPECIFIED 04/16/2009 ANANYA MCBRIDE PSYD ANN L 296.40 MO BIPOLAR MANIC UNSPECIFIED 04/16/2009 ANANYA MCBRIDE PSYD ANN L 296.40 MO BIPOLAR MANIC UNSPECIFIED 04/16/2009 RIOS DO, BOYD K 296.40 MO BIPOLAR MANIC UNSPECIFIED 04/16/2009 ANANYA MCBRIDE PSYD ANN L 296.40 MO BIPOLAR MANIC UNSPECIFIED 04/16/2009 ANANYA MCBRIDE PSYD ANN L 296.40 MO BIPOLAR MANIC UNSPECIFIED 04/16/2009 ANANYA MCBRIDE PSYD ANN L 296.40 MO BIPOLAR MANIC UNSPECIFIED 04/16/2009 LIDYA TORRES PA-C 296.40 MO BIPOLAR MANIC UNSPECIFIED 04/16/2009 ANANYA MCBRIDE PSYD ANN L 296.40 MO BIPOLAR MANIC UNSPECIFIED 04/16/2009 RIOS DO, BOYD K 296.40 MO BIPOLAR MANIC UNSPECIFIED 04/16/2009 ANANYA MCBRIDE PSYD ANN L 296.40 MO BIPOLAR MANIC UNSPECIFIED 04/16/2009 ANANYA MCBRIDE PSYD ANN L 296.40 MO BIPOLAR MANIC UNSPECIFIED 04/16/2009 ANANYA MCBRIDE PSYD ANN L 296.40 MO BIPOLAR MANIC UNSPECIFIED 04/16/2009 ANANYA MCBRIDE PSYD ANN L 296.40 MO BIPOLAR MANIC UNSPECIFIED 04/16/2009 ANANYA MCBRIDE PSYD ANN L 296.40 MO BIPOLAR MANIC UNSPECIFIED 04/16/2009 ANANYA MCBRIDE PSYD ANN L 296.40 MO BIPOLAR MANIC UNSPECIFIED 04/16/2009 ANANYA MCBRIDE PSYD ANN L 296.40 MO BIPOLAR MANIC UNSPECIFIED 04/16/2009 CARMELITA RIOS DOA K 296.40 MO BIPOLAR MANIC UNSPECIFIED 04/16/2009 ANANYA MCBRIDE PSYD ANN L 296.40 MO BIPOLAR MANIC UNSPECIFIED 04/16/2009 ANANYA MCBRIDE PSYD ANN L 296.40 MO BIPOLAR MANIC UNSPECIFIED 04/16/2009 ANANYA MCBRIDE PSYD ANN L 296.40 MO BIPOLAR MANIC UNSPECIFIED 04/16/2009 BOYD RIOS DO K 296.40 MO BIPOLAR MANIC UNSPECIFIED 04/16/2009 ANANYA MCBRIDE PSYD ANN L 296.40 MO BIPOLAR MANIC UNSPECIFIED 04/16/2009 ANANYA MCBRIDE PSYD ANN L 296.40 MO BIPOLAR MANIC UNSPECIFIED 04/16/2009 ALISSA PIERRE MD 296.40 MO BIPOLAR MANIC UNSPECIFIED 04/16/2009 ANANYA MCBRIDE PSYD ANN L 296.40 MO BIPOLAR MANIC UNSPECIFIED 04/16/2009 ANANYA MCBRIDE PSYD ANN L 296.40 MO BIPOLAR MANIC UNSPECIFIED 04/16/2009 ALTAGRACIA BENOIT APRN 296.40 MO BIPOLAR MANIC UNSPECIFIED 04/16/2009 ANANYA MCBRIDE PSYD ANN L 296.40 MO BIPOLAR MANIC UNSPECIFIED 04/16/2009 RIOS DO BOYD K 296.40 MO BIPOLAR MANIC UNSPECIFIED 04/16/2009 ANANYA MCBRIDE PSYD ANN L 296.40 MO BIPOLAR MANIC UNSPECIFIED 04/16/2009 ANANYA MCBRIDE PSYD ANN L 296.40 MO BIPOLAR MANIC UNSPECIFIED 04/16/2009 ANANYA MCBRIDE PSYD ANN L 296.40 MO BIPOLAR MANIC UNSPECIFIED 07/09/2009 REED JUAREZ, CHRISTOPHER L 301.4 PD OBSESSIVE-COMPULSIVE 07/09/2009 REED JUAREZ, CHRISTOPHER L 301.4 PD OBSESSIVE-COMPULSIVE 07/09/2009 REGGIEEARJoelle JUAREZ, CHRISTOPHER L 301.4 PD OBSESSIVE-COMPULSIVE 07/09/2009 301.4 PD OBSESSIVE- COMPULSIVE 07/09/2009 REGGIEEARJoelle JUAREZ, CHRISTOPHER L 301.4 PD OBSESSIVE-COMPULSIVE 07/09/2009 KRITSALLEEARJoelle JUAREZ, CHRISTOPHER L 301.4 PD OBSESSIVE-COMPULSIVE 07/09/2009 301.4 PD OBSESSIVE- COMPULSIVE 07/09/2009 301.4 PD OBSESSIVE- COMPULSIVE 07/09/2009 301.4 PD OBSESSIVE- COMPULSIVE 07/09/2009 301.4 PD OBSESSIVE- COMPULSIVE 07/09/2009 301.4 PD OBSESSIVE- COMPULSIVE 07/09/2009 REGGIEEARANANYA Lai PSYD ANN L 301.4 PD OBSESSIVE-COMPULSIVE 07/09/2009 ANANYA MCBRIDE PSYD ANN L 301.4 PD OBSESSIVE-COMPULSIVE 07/09/2009 REGGIEEARJoelle JUAREZ, CHRISTOPHER L 301.4 PD OBSESSIVE-COMPULSIVE 07/09/2009 REGGIEEARJoelle JUAREZ, CHRISTOPHER L 301.4 PD OBSESSIVE-COMPULSIVE 07/09/2009 REGGIEEARANANYA Lai PSYD ANN L 301.4 PD OBSESSIVE-COMPULSIVE 07/09/2009 KRISTALLEEARJoelle JUAREZ, CHRISTOPHER L 301.4 PD OBSESSIVE-COMPULSIVE 07/09/2009 REGGIEEARJoelle JUAREZ, CHRISTOPHER L 301.4 PD OBSESSIVE-COMPULSIVE 07/09/2009 REGGIEEARANANYA Lai PSYD ANN L 301.4 PD OBSESSIVE-COMPULSIVE 07/09/2009 MCCLEEARY KIARAYD, CHRISTOPHER L 301.4 PD OBSESSIVE-COMPULSIVE 07/09/2009 REGGIEEARJoelle JUAREZ, CHRISTOPHER L 301.4 PD OBSESSIVE-COMPULSIVE 07/09/2009 REGGIEEARY LARRY, CHRISTOPHER L 301.4 PD OBSESSIVE-COMPULSIVE 07/09/2009 KRISTALLEEARY PSYD, CHRISTOPHER L 301.4 PD OBSESSIVE-COMPULSIVE 07/09/2009 BOYD RIOS DO 301.4 PD OBSESSIVE-COMPULSIVE 07/09/2009 MCCLEEARY LARRY, CHRISTOPHER L 301.4 PD OBSESSIVE-COMPULSIVE 07/09/2009 MCCLEEARY PSYD, CHRISTOPHER L 301.4 PD OBSESSIVE-COMPULSIVE 07/09/2009 MCCLEEARY PSYD, CHRISTOPHER L 301.4 PD OBSESSIVE-COMPULSIVE 07/09/2009 LIDYA TORRES PA-C 301.4 PD OBSESSIVE-COMPULSIVE 07/09/2009 MCCLEEARY PSYD, CHRISTOPHER L 301.4 PD OBSESSIVE-COMPULSIVE 07/09/2009 RIOS DO, BOYD K 301.4 PD OBSESSIVE-COMPULSIVE 07/09/2009 MCCLEEARY PSYD, CHRISTOPHER L 301.4 PD OBSESSIVE-COMPULSIVE 07/09/2009 MCCLEEARY PSYD, CHRISTOPHER L 301.4 PD OBSESSIVE-COMPULSIVE 07/09/2009 MCCLEEARY PSYD, CHRISTOPHER L 301.4 PD OBSESSIVE-COMPULSIVE 07/09/2009 MCCLEEARY PSYD, CHRISTOPHER L 301.4 PD OBSESSIVE-COMPULSIVE 07/09/2009 MCCLEEARY PSYD, CHRISTOPHER L 301.4 PD OBSESSIVE-COMPULSIVE 07/09/2009 MCCLEEARY PSYD, CHRISTOPHER L 301.4 PD OBSESSIVE-COMPULSIVE 07/09/2009 MCCLEEARY PSYD, CHRISTOPHER L 301.4 PD OBSESSIVE-COMPULSIVE 07/09/2009 RIOS DO, BOYD K 301.4 PD OBSESSIVE-COMPULSIVE 07/09/2009 MCCLEEARY PSYD, CHRISTOPHER L 301.4 PD OBSESSIVE-COMPULSIVE 07/09/2009 MCCLEEARY PSYD, CHRISTOPHER L 301.4 PD OBSESSIVE-COMPULSIVE 07/09/2009 MCCLEEARY PSYD, CHRISTOPHER L 301.4 PD OBSESSIVE-COMPULSIVE 07/09/2009 RIOS DO, BOYD K 301.4 PD OBSESSIVE-COMPULSIVE 07/09/2009 MCCLEEARY PSYD, CHRISTOPHER L 301.4 PD OBSESSIVE-COMPULSIVE 07/09/2009 MCCLEEARY PSYD, CHRISTOPHER L 301.4 PD OBSESSIVE-COMPULSIVE 07/09/2009 ALISSA PIERRE MD 301.4 PD OBSESSIVE-COMPULSIVE 07/09/2009 MCCLEEARY PSYD, CHRISTOPHER L 301.4 PD OBSESSIVE-COMPULSIVE 07/09/2009 MCCLEEARY PSYD, CHRISTOPHER L 301.4 PD OBSESSIVE-COMPULSIVE 07/09/2009 ALTAGRACIA BENOIT APRN 301.4 PD OBSESSIVE-COMPULSIVE 07/09/2009 MCCLEEARY PSYD, CHRISTOPHER L 301.4 PD OBSESSIVE-COMPULSIVE 07/09/2009 RIOS BOYD GARG 301.4 PD OBSESSIVE-COMPULSIVE 07/09/2009 ANANYA MCBRIDE PSYD ANN L 301.4 PD OBSESSIVE-COMPULSIVE 07/09/2009 ANANYA MCBRIDE PSYD ANN L 301.4 PD OBSESSIVE-COMPULSIVE 07/09/2009 ANANYA MCBRIDE PSYD ANN L 301.4 PD OBSESSIVE-COMPULSIVE 02/10/2010 ANANYA MCBRIDE PSYD ANN L 301.9 PD PERS DIS NOS 02/10/2010 ANANYA MCBRIDE PSYD ANN L 301.9 PD PERS DIS NOS 02/10/2010 ANANYA MCBRIDE PSYD ANN L 301.9 PD PERS DIS NOS 02/10/2010 301.9 PD PERS DIS NOS 02/10/2010 ANANYA MCBRIDE PSYD ANN L 301.9 PD PERS DIS NOS 02/10/2010 ANANYA MCBRIDE PSYD ANN L 301.9 PD PERS DIS NOS 02/10/2010 301.9 PD PERS DIS NOS 02/10/2010 301.9 PD PERS DIS NOS 02/10/2010 301.9 PD PERS DIS NOS 02/10/2010 301.9 PD PERS DIS NOS 02/10/2010 301.9 PD PERS DIS NOS 02/10/2010 ANANYA MCBRIDE PSYD ANN L 301.9 PD PERS DIS NOS 02/10/2010 ANANYA MCBRIDE PSYD ANN L 301.9 PD PERS DIS NOS 02/10/2010 ANANYA MCBRIDE PSYD ANN L 301.9 PD PERS DIS NOS 02/10/2010 ANANYA MCBRIDE PSYD ANN L 301.9 PD PERS DIS NOS 02/10/2010 ANANYA MCBRIDE PSYD ANN L 301.9 PD PERS DIS NOS 02/10/2010 ANANYA MCBRIDE PSYD ANN L 301.9 PD PERS DIS NOS 02/10/2010 ANANYA MCBRIDE PSYD ANN L 301.9 PD PERS DIS NOS 02/10/2010 ANANYA MCBRIDE PSYD ANN L 301.9 PD PERS DIS NOS 02/10/2010 ANANYA MCBRIDE PSYD ANN L 301.9 PD PERS DIS NOS 02/10/2010 ANANYA MCBRIDE PSYD ANN L 301.9 PD PERS DIS NOS 02/10/2010 ANANYA MCBRIDE PSYD ANN L 301.9 PD PERS DIS NOS 02/10/2010 ANANYA MCBRIDE PSYD ANN L 301.9 PD PERS DIS NOS 02/10/2010 RIOS DO BOYD K 301.9 PD PERS DIS NOS 02/10/2010 ANANYA MCBRIDE PSYD ANN L 301.9 PD PERS DIS NOS 02/10/2010 ANANYA MCBRIDE PSYD ANN L 301.9 PD PERS DIS NOS 02/10/2010 ANANYA MCBRIDE PSYD ANN L 301.9 PD PERS DIS NOS 02/10/2010 LIDYA TORRES PA-C 301.9 PD PERS DIS NOS 02/10/2010 ANANYA MCBRIDE PSYD ANN L 301.9 PD PERS DIS NOS 02/10/2010 RIOS DO BOYD K 301.9 PD PERS DIS NOS 02/10/2010 ANANYA MCBRIDE PSYD ANN L 301.9 PD PERS DIS NOS 02/10/2010 ANANYA MCBRIDE PSYD ANN L 301.9 PD PERS DIS NOS 02/10/2010 ANANYA MCBRIDE PSYD ANN L 301.9 PD PERS DIS NOS 02/10/2010 ANANYA MCBRIDE PSYD ANN L 301.9 PD PERS DIS NOS 02/10/2010 ANANYA MCBRIDE PSYD ANN L 301.9 PD PERS DIS NOS 02/10/2010 ANANYA MCBRIDE PSYD ANN L 301.9 PD PERS DIS NOS 02/10/2010 ANANYA MCBRIDE PSYD ANN L 301.9 PD PERS DIS NOS 02/10/2010 RIOS CARMELITA GARGA K 301.9 PD PERS DIS NOS 02/10/2010 ANANYA MCBRIDE PSYD ANN L 301.9 PD PERS DIS NOS 02/10/2010 ANANYA MCBRIDE PSYD ANN L 301.9 PD PERS DIS NOS 02/10/2010 ANANYA MCBRIDE PSYD ANN L 301.9 PD PERS DIS NOS 02/10/2010 RIOS DO BOYD K 301.9 PD PERS DIS NOS 02/10/2010 ANANYA MCBRIDE PSYD ANN L 301.9 PD PERS DIS NOS 02/10/2010 ANANYA MCBRIDE PSYD ANN L 301.9 PD PERS DIS NOS 02/10/2010 ALISSA PIERRE MD 301.9 PD PERS DIS NOS 02/10/2010 ANANYA MCBRIDE PSYD ANN L 301.9 PD PERS DIS NOS 02/10/2010 ANANYA MCBRIDE PSYD ANN L 301.9 PD PERS DIS NOS 02/10/2010 ALTAGRACIA BENOIT APRN 301.9 PD PERS DIS NOS 02/10/2010 ANANYA MCBRIDE PSYD ANN L 301.9 PD PERS DIS NOS 02/10/2010 BOYD RIOS DO 301.9 PD PERS DIS NOS 02/10/2010 ANANYA MCBRIDE PSYD ANN L 301.9 PD PERS DIS NOS 02/10/2010 ANANYA MCBRIDE PSYD ANN L 301.9 PD PERS DIS NOS 02/10/2010 ANANYA MCBRIDE PSYD ANN L 301.9 PD PERS DIS NOS 07/27/2011 ANANYA MCBRIDE PSYD ANN L 296.62 MO BIPOLAR I MIXED MODERATE 07/27/2011 ANANYA MCBRIDE PSYD ANN L 296.62 MO BIPOLAR I MIXED MODERATE 07/27/2011 ANANYA MCBRIDE PSYD ANN L 296.62 MO BIPOLAR I MIXED MODERATE 07/27/2011 296.62 MO BIPOLAR I MIXED MODERATE 07/27/2011 ANANYA MCBRIDE PSYD ANN L 296.62 MO BIPOLAR I MIXED MODERATE 07/27/2011 ANANYA MCBRIDE PSYD ANN L 296.62 MO BIPOLAR I MIXED MODERATE 07/27/2011 296.62 MO BIPOLAR I MIXED MODERATE 07/27/2011 296.62 MO BIPOLAR I MIXED MODERATE 07/27/2011 296.62 MO BIPOLAR I MIXED MODERATE 07/27/2011 296.62 MO BIPOLAR I MIXED MODERATE 07/27/2011 296.62 MO BIPOLAR I MIXED MODERATE 07/27/2011 ANANYA MCBRIDE PSYD ANN L 296.62 MO BIPOLAR I MIXED MODERATE 07/27/2011 ANANYA MCBRIDE PSYD ANN L 296.62 MO BIPOLAR I MIXED MODERATE 07/27/2011 ANANYA MCBRIDE PSYD ANN L 296.62 MO BIPOLAR I MIXED MODERATE 07/27/2011 ANANYA MCBRIDE PSYD ANN L 296.62 MO BIPOLAR I MIXED MODERATE 07/27/2011 ANANYA MCBRIDE PSYD ANN L 296.62 MO BIPOLAR I MIXED MODERATE 07/27/2011 ANANYA MCBRIDE PSYD ANN L 296.62 MO BIPOLAR I MIXED MODERATE 07/27/2011 REED JUAREZ, CHRISTOPHER L 296.62 MO BIPOLAR I MIXED MODERATE 07/27/2011 REED JUAREZ, CHRISTOPHER L 296.62 MO BIPOLAR I MIXED MODERATE 07/27/2011 REED JUAREZ, CHRISTOPHER L 296.62 MO BIPOLAR I MIXED MODERATE 07/27/2011 REED JUAREZ, CHRISTOPHER L 296.62 MO BIPOLAR I MIXED MODERATE 07/27/2011 REED JUAREZ, CHRISTOPHER L 296.62 MO BIPOLAR I MIXED MODERATE 07/27/2011 REED JUAREZ, CHRISTOPHER L 296.62 MO BIPOLAR I MIXED MODERATE 07/27/2011 RIOS DO, BOYD K 296.62 MO BIPOLAR I MIXED MODERATE 07/27/2011 REED JUAREZ, CHRISTOPHER L 296.62 MO BIPOLAR I MIXED MODERATE 07/27/2011 REED JUAREZ, CHRISTOPHER L 296.62 MO BIPOLAR I MIXED MODERATE 07/27/2011 REED JUAREZ, CHRISTOPHER L 296.62 MO BIPOLAR I MIXED MODERATE 07/27/2011 LIDYA TORRES PA-C 296.62 MO BIPOLAR I MIXED MODERATE 07/27/2011 REED JUAREZ, CHRISTOPHER L 296.62 MO BIPOLAR I MIXED MODERATE 07/27/2011 RIOS DOCARMELITAA K 296.62 MO BIPOLAR I MIXED MODERATE 07/27/2011 REED JUAREZ, CHRISTOPHER L 296.62 MO BIPOLAR I MIXED MODERATE 07/27/2011 REED JUAREZ, CHRISTOPHER L 296.62 MO BIPOLAR I MIXED MODERATE 07/27/2011 REED JUAREZ, CHRISTOPHER L 296.62 MO BIPOLAR I MIXED MODERATE 07/27/2011 REED JUAREZ, CHRISTOPHER L 296.62 MO BIPOLAR I MIXED MODERATE 07/27/2011 REED JUAREZ, CHRISTOPHER L 296.62 MO BIPOLAR I MIXED MODERATE 07/27/2011 REED JUAREZ, CHRISTOPHER L 296.62 MO BIPOLAR I MIXED MODERATE 07/27/2011 REED JUAREZ, CHRISTOPHER L 296.62 MO BIPOLAR I MIXED MODERATE 07/27/2011 RIOS DO BOYD K 296.62 MO BIPOLAR I MIXED MODERATE 07/27/2011 REED JUAREZ, CHRISTOPHER L 296.62 MO BIPOLAR I MIXED MODERATE 07/27/2011 ANANYA MCBRIDE PSYD ANN L 296.62 MO BIPOLAR I MIXED MODERATE 07/27/2011 ANANYA MCBRIDE PSYD ANN L 296.62 MO BIPOLAR I MIXED MODERATE 07/27/2011 RIOS DO, BOYD K 296.62 MO BIPOLAR I MIXED MODERATE 07/27/2011 MCCMARKUS JUAREZ, CHRISTOPHER L 296.62 MO BIPOLAR I MIXED MODERATE 07/27/2011 ANANYA MCBRIDE PSYD ANN L 296.62 MO BIPOLAR I MIXED MODERATE 07/27/2011 AILSSA PIERRE MD 296.62 MO BIPOLAR I MIXED MODERATE 07/27/2011 MCCMARKUS JUAREZ, CHRISTOPHER L 296.62 MO BIPOLAR I MIXED MODERATE 07/27/2011 REED JUAREZ, CHRISTOPHER L 296.62 MO BIPOLAR I MIXED MODERATE 07/27/2011 ALTAGRACIA BENOIT APRN 296.62 MO BIPOLAR I MIXED MODERATE 07/27/2011 MCCMARKUS JUAREZ, CHRISTOPHER L 296.62 MO BIPOLAR I MIXED MODERATE 07/27/2011 RIOS DO BOYD K 296.62 MO BIPOLAR I MIXED MODERATE 07/27/2011 REED JUAREZ, CHRISTOPHER L 296.62 MO BIPOLAR I MIXED MODERATE 07/27/2011 ERED JUAREZ, CHRISTOPHER L 296.62 MO BIPOLAR I MIXED MODERATE 07/27/2011 REED JUAREZ, CHRISTOPHER L 296.62 MO BIPOLAR I MIXED MODERATE 11/03/2011 ANANYA MCBRIDE PSYD L 300.3 AN OBCESS COMP DIS 11/03/2011 ANANYA MCBRIDE PSYD L 300.3 AN OBCESS COMP DIS 11/03/2011 ANANYA MCBRIDE PSYD L 300.3 AN OBCESS COMP DIS 11/03/2011 300.3 AN OBCESS COMP DIS 11/03/2011 ANANYA MCBRIDE PSYD L 300.3 AN OBCESS COMP DIS 11/03/2011 ANANYA MCBRIDE PSYD L 300.3 AN OBCESS COMP DIS 11/03/2011 300.3 AN OBCESS COMP DIS 11/03/2011 300.3 AN OBCESS COMP DIS 11/03/2011 300.3 AN OBCESS COMP DIS 11/03/2011 300.3 AN OBCESS COMP DIS 11/03/2011 300.3 AN OBCESS COMP DIS 11/03/2011 ANANYA MCBRIDE PSYD ANN L 300.3 AN OBCESS COMP DIS 11/03/2011 ANANYA MCBRIDE PSYD ANN L 300.3 AN OBCESS COMP DIS 11/03/2011 ANANYA MCBRIDE PSYD ANN L 300.3 AN OBCESS COMP DIS 11/03/2011 ANANYA MCBRIDE PSYD ANN L 300.3 AN OBCESS COMP DIS 11/03/2011 ANANYA MCBRIDE PSYD ANN L 300.3 AN OBCESS COMP DIS 11/03/2011 NIKOLAIY KIARAYD, CHRISTOPHER L 300.3 AN OBCESS COMP DIS 11/03/2011 ANANYA MCBRIDE PSYD ANN L 300.3 AN OBCESS COMP DIS 11/03/2011 ANANYA MCBRIDE PSYD ANN L 300.3 AN OBCESS COMP DIS 11/03/2011 ANANYA MCBRIDE PSYD ANN L 300.3 AN OBCESS COMP DIS 11/03/2011 ANANYA MCBRIDE PSYD ANN L 300.3 AN OBCESS COMP DIS 11/03/2011 ANANYA MCBRIDE PSYD ANN L 300.3 AN OBCESS COMP DIS 11/03/2011 ANANYA MCBRIDE PSYD ANN L 300.3 AN OBCESS COMP DIS 11/03/2011 RIOS DOBOYD K 300.3 AN OBCESS COMP DIS 11/03/2011 ANANYA MCBRIDE PSYD ANN L 300.3 AN OBCESS COMP DIS 11/03/2011 ANANYA MCBRIDE PSYD ANN L 300.3 AN OBCESS COMP DIS 11/03/2011 ANANYA MCBRIDE PSYD ANN L 300.3 AN OBCESS COMP DIS 11/03/2011 LIDYA TORRES PA-C 300.3 AN OBCESS COMP DIS 11/03/2011 ANANYA MCBRIDE PSYD ANN L 300.3 AN OBCESS COMP DIS 11/03/2011 BOYD RIOS DO K 300.3 AN OBCESS COMP DIS 11/03/2011 ANANYA MCBRIDE PSYD ANN L 300.3 AN OBCESS COMP DIS 11/03/2011 ANANYA MCBRIDE PSYD ANN L 300.3 AN OBCESS COMP DIS 11/03/2011 ANANYA MCBRIDE PSYD ANN L 300.3 AN OBCESS COMP DIS 11/03/2011 ANANYA MCBRIDE PSYD ANN L 300.3 AN OBCESS COMP DIS 11/03/2011 ANANYA MCBRIDE PSYD ANN L 300.3 AN OBCESS COMP DIS 11/03/2011 ANANYA MCBRIDE PSYD ANN L 300.3 AN OBCESS COMP DIS 11/03/2011 ANANYA MCBRIDE PSYD ANN L 300.3 AN OBCESS COMP DIS 11/03/2011 RIOS CARMELITA GARGA K 300.3 AN OBCESS COMP DIS 11/03/2011 ANANYA MCBRIDE PSYD ANN L 300.3 AN OBCESS COMP DIS 11/03/2011 ANANYA MCBRIDE PSYD ANN L 300.3 AN OBCESS COMP DIS 11/03/2011 ANANYA MCBRIDE PSYD ANN L 300.3 AN OBCESS COMP DIS 11/03/2011 CARMELITA RIOS DOA K 300.3 AN OBCESS COMP DIS 11/03/2011 ANANYA MCBRIDE PSYD ANN L 300.3 AN OBCESS COMP DIS 11/03/2011 ANANYA MCBRIDE PSYD ANN L 300.3 AN OBCESS COMP DIS 11/03/2011 ALISSA PIERRE MD 300.3 AN OBCESS COMP DIS 11/03/2011 ANANYA MCBRIDE PSYD ANN L 300.3 AN OBCESS COMP DIS 11/03/2011 ANANYA MCBRIDE PSYD ANN L 300.3 AN OBCESS COMP DIS 11/03/2011 ALTAGRACIA BENOIT APRN 300.3 AN OBCESS COMP DIS 11/03/2011 ANANYA MCBRIDE PSYD ANN L 300.3 AN OBCESS COMP DIS 11/03/2011 BOYD RIOS DO K 300.3 AN OBCESS COMP DIS 11/03/2011 ANANYA MCBRIDE PSYD ANN L 300.3 AN OBCESS COMP DIS 11/03/2011 ANANYA MCBRIDE PSYD ANN L 300.3 AN OBCESS COMP DIS 11/03/2011 ANANYA MCBRIDE PSYD ANN L 300.3 AN OBCESS COMP DIS 11/04/2011 ANANYA MCBRIDE PSYD ANN L 296.52 MO BIPOLAR I DEPRESSED MODERATE 11/04/2011 ANANYA MCBRIDE PSYD ANN L 296.52 MO BIPOLAR I DEPRESSED MODERATE 11/04/2011 ANANYA MCBRIDE PSYD ANN L 296.52 MO BIPOLAR I DEPRESSED MODERATE 11/04/2011 296.52 MO BIPOLAR I DEPRESSED MODERATE 11/04/2011 ANANYA MCBRIDE PSYD ANN L 296.52 MO BIPOLAR I DEPRESSED MODERATE 11/04/2011 ANANYA MCBRIDE PSYD ANN L 296.52 MO BIPOLAR I DEPRESSED MODERATE 11/04/2011 296.52 MO BIPOLAR I DEPRESSED MODERATE 11/04/2011 296.52 MO BIPOLAR I DEPRESSED MODERATE 11/04/2011 296.52 MO BIPOLAR I DEPRESSED MODERATE 11/04/2011 296.52 MO BIPOLAR I DEPRESSED MODERATE 11/04/2011 296.52 MO BIPOLAR I DEPRESSED MODERATE 11/04/2011 ANANYA MCBRIDE PSYD ANN L 296.52 MO BIPOLAR I DEPRESSED MODERATE 11/04/2011 ANANYA MCBRIDE PSYD ANN L 296.52 MO BIPOLAR I DEPRESSED MODERATE 11/04/2011 ANANYA MCBRIDE PSYD ANN L 296.52 MO BIPOLAR I DEPRESSED MODERATE 11/04/2011 ANANYA MCBRIDE PSYD ANN L 296.52 MO BIPOLAR I DEPRESSED MODERATE 11/04/2011 ANANYA MCBRIDE PSYD ANN L 296.52 MO BIPOLAR I DEPRESSED MODERATE 11/04/2011 ANANYA MCBRIDE PSYD ANN L 296.52 MO BIPOLAR I DEPRESSED MODERATE 11/04/2011 ANANYA MCBRIDE PSYD ANN L 296.52 MO BIPOLAR I DEPRESSED MODERATE 11/04/2011 ANANYA MCBRIDE PSYD ANN L 296.52 MO BIPOLAR I DEPRESSED MODERATE 11/04/2011 ANANYA MCBRIDE PSYD ANN L 296.52 MO BIPOLAR I DEPRESSED MODERATE 11/04/2011 ANANYA MCBRIDE PSYD ANN L 296.52 MO BIPOLAR I DEPRESSED MODERATE 11/04/2011 ANANYA MCBRIDE PSYD ANN L 296.52 MO BIPOLAR I DEPRESSED MODERATE 11/04/2011 ANANYA MCBRIDE PSYD ANN L 296.52 MO BIPOLAR I DEPRESSED MODERATE 11/04/2011 BOYD RIOS DO 296.52 MO BIPOLAR I DEPRESSED MODERATE 11/04/2011 ANANYA MCBRIDE PSYD ANN L 296.52 MO BIPOLAR I DEPRESSED MODERATE 11/04/2011 MCCANANYA APARICIO PSYD ANN L 296.52 MO BIPOLAR I DEPRESSED MODERATE 11/04/2011 ANANYA MCBRIDE PSYD ANN L 296.52 MO BIPOLAR I DEPRESSED MODERATE 11/04/2011 LIDYA TORRES PA-C 296.52 MO BIPOLAR I DEPRESSED MODERATE 11/04/2011 ANANYA MCBRIDE PSYD ANN L 296.52 MO BIPOLAR I DEPRESSED MODERATE 11/04/2011 BOYD RIOS DO K 296.52 MO BIPOLAR I DEPRESSED MODERATE 11/04/2011 ANANYA MCBRIDE PSYD ANN L 296.52 MO BIPOLAR I DEPRESSED MODERATE 11/04/2011 ANANYA MCBRIDE PSYD ANN L 296.52 MO BIPOLAR I DEPRESSED MODERATE 11/04/2011 ANANYA MCBRIDE PSYD ANN L 296.52 MO BIPOLAR I DEPRESSED MODERATE 11/04/2011 ANANYA MCBRIDE PSYD ANN L 296.52 MO BIPOLAR I DEPRESSED MODERATE 11/04/2011 ANANYA MCBRIDE PSYD ANN L 296.52 MO BIPOLAR I DEPRESSED MODERATE 11/04/2011 ANANYA MCBRIDE PSYD ANN L 296.52 MO BIPOLAR I DEPRESSED MODERATE 11/04/2011 ANANYA MCBRIDE PSYD ANN L 296.52 MO BIPOLAR I DEPRESSED MODERATE 11/04/2011 BOYD RIOS DO K 296.52 MO BIPOLAR I DEPRESSED MODERATE 11/04/2011 ANANYA MCBRIDE PSYD ANN L 296.52 MO BIPOLAR I DEPRESSED MODERATE 11/04/2011 ANANYA MCBRIDE PSYD ANN L 296.52 MO BIPOLAR I DEPRESSED MODERATE 11/04/2011 ANANYA MCBRIDE PSYD ANN L 296.52 MO BIPOLAR I DEPRESSED MODERATE 11/04/2011 BOYD RIOS DO K 296.52 MO BIPOLAR I DEPRESSED MODERATE 11/04/2011 ANANYA MCBRIDE PSYD ANN L 296.52 MO BIPOLAR I DEPRESSED MODERATE 11/04/2011 ANANYA MCBRIDE PSYD ANN L 296.52 MO BIPOLAR I DEPRESSED MODERATE 11/04/2011 ALISSA PIERRE MD 296.52 MO BIPOLAR I DEPRESSED MODERATE 11/04/2011 ANANYA MCBRIDE PSYD ANN L 296.52 MO BIPOLAR I DEPRESSED MODERATE 11/04/2011 ANANYA MCBRIDE PSYD ANN L 296.52 MO BIPOLAR I DEPRESSED MODERATE 11/04/2011 ALTAGRACIA BENOIT APRN 296.52 MO BIPOLAR I DEPRESSED MODERATE 11/04/2011 ANANYA MCBRIDE PSYD ANN L 296.52 MO BIPOLAR I DEPRESSED MODERATE 11/04/2011 BOYD RIOS DO K 296.52 MO BIPOLAR I DEPRESSED MODERATE 11/04/2011 ANANYA MCBRIDE PSYD ANN L 296.52 MO BIPOLAR I DEPRESSED MODERATE 11/04/2011 ANANYA MCBRIDE PSYD ANN L 296.52 MO BIPOLAR I DEPRESSED MODERATE 11/04/2011 ANANYA MCBRIDE PSYD ANN L 296.52 MO BIPOLAR I DEPRESSED MODERATE 05/18/2012 ANANYA MCBRIDE PSYD ANN L 296.64 MO BIPOLAR I MIXED W PSYCHOTIC BEHAVIOR 05/18/2012 ANANYA MCBRIDE PSYD ANN L 296.64 MO BIPOLAR I MIXED W PSYCHOTIC BEHAVIOR 05/18/2012 ANANYA MCBRIDE PSYD ANN L 296.64 MO BIPOLAR I MIXED W PSYCHOTIC BEHAVIOR 05/18/2012 296.64 MO BIPOLAR I MIXED W PSYCHOTIC BEHAVIOR 05/18/2012 ANANYA MCBRIDE PSYD ANN L 296.64 MO BIPOLAR I MIXED W PSYCHOTIC BEHAVIOR 05/18/2012 ANANYA MCBRIDE PSYD ANN L 296.64 MO BIPOLAR I MIXED W PSYCHOTIC BEHAVIOR 05/18/2012 296.64 MO BIPOLAR I MIXED W PSYCHOTIC BEHAVIOR 05/18/2012 296.64 MO BIPOLAR I MIXED W PSYCHOTIC BEHAVIOR 05/18/2012 296.64 MO BIPOLAR I MIXED W PSYCHOTIC BEHAVIOR 05/18/2012 296.64 MO BIPOLAR I MIXED W PSYCHOTIC BEHAVIOR 05/18/2012 296.64 MO BIPOLAR I MIXED W PSYCHOTIC BEHAVIOR 05/18/2012 ANANYA MCBRIDE PSYD ANN L 296.64 MO BIPOLAR I MIXED W PSYCHOTIC BEHAVIOR 05/18/2012 ANANYA MCBRIDE PSYD ANN L 296.64 MO BIPOLAR I MIXED W PSYCHOTIC BEHAVIOR 05/18/2012 ANANYA MCBRIDE PSYD ANN L 296.64 MO BIPOLAR I MIXED W PSYCHOTIC BEHAVIOR 05/18/2012 ANANYA MCBRIDE PSYD ANN L 296.64 MO BIPOLAR I MIXED W PSYCHOTIC BEHAVIOR 05/18/2012 ANANYA MCBRIDE PSYD ANN L 296.64 MO BIPOLAR I MIXED W PSYCHOTIC BEHAVIOR 05/18/2012 ANANYA MCBRIDE PSYD ANN L 296.64 MO BIPOLAR I MIXED W PSYCHOTIC BEHAVIOR 05/18/2012 ANANYA MCBRIDE PSYD ANN L 296.64 MO BIPOLAR I MIXED W PSYCHOTIC BEHAVIOR 05/18/2012 ANANYA MCBRIDE PSYD ANN L 296.64 MO BIPOLAR I MIXED W PSYCHOTIC BEHAVIOR 05/18/2012 ANANYA MCBRIDE PSYD ANN L 296.64 MO BIPOLAR I MIXED W PSYCHOTIC BEHAVIOR 05/18/2012 ANANYA MCBRIDE PSYD ANN L 296.64 MO BIPOLAR I MIXED W PSYCHOTIC BEHAVIOR 05/18/2012 ANANYA MCBRIDE PSYD ANN L 296.64 MO BIPOLAR I MIXED W PSYCHOTIC BEHAVIOR 05/18/2012 ANANYA MCBRIDE PSYD ANN L 296.64 MO BIPOLAR I MIXED W PSYCHOTIC BEHAVIOR 05/18/2012 CARMELITA RIOS DOA K 296.64 MO BIPOLAR I MIXED W PSYCHOTIC BEHAVIOR 05/18/2012 ANANYA MCBRIDE PSYD ANN L 296.64 MO BIPOLAR I MIXED W PSYCHOTIC BEHAVIOR 05/18/2012 ANANYA MCBRIDE PSYD ANN L 296.64 MO BIPOLAR I MIXED W PSYCHOTIC BEHAVIOR 05/18/2012 ANANYA MCBRIDE PSYD ANN L 296.64 MO BIPOLAR I MIXED W PSYCHOTIC BEHAVIOR 05/18/2012 LIDYA TORRES PA-C 296.64 MO BIPOLAR I MIXED W PSYCHOTIC BEHAVIOR 05/18/2012 ANANYA MCBRIDE PSYD ANN L 296.64 MO BIPOLAR I MIXED W PSYCHOTIC BEHAVIOR 05/18/2012 BOYD RIOS DO K 296.64 MO BIPOLAR I MIXED W PSYCHOTIC BEHAVIOR 05/18/2012 ANANYA MCBRIDE PSYD ANN L 296.64 MO BIPOLAR I MIXED W PSYCHOTIC BEHAVIOR 05/18/2012 ANANYA MCBRIDE PSYD ANN L 296.64 MO BIPOLAR I MIXED W PSYCHOTIC BEHAVIOR 05/18/2012 ANANYA MCBRIDE PSYD ANN L 296.64 MO BIPOLAR I MIXED W PSYCHOTIC BEHAVIOR 05/18/2012 ANANYA MCBRIDE PSYD ANN L 296.64 MO BIPOLAR I MIXED W PSYCHOTIC BEHAVIOR 05/18/2012 ANANYA MCBRIDE PSYD ANN L 296.64 MO BIPOLAR I MIXED W PSYCHOTIC BEHAVIOR 05/18/2012 ANANYA MCBRIDE PSYD ANN L 296.64 MO BIPOLAR I MIXED W PSYCHOTIC BEHAVIOR 05/18/2012 ANANYA MCBRIDE PSYD ANN L 296.64 MO BIPOLAR I MIXED W PSYCHOTIC BEHAVIOR 05/18/2012 BOYD RIOS DO K 296.64 MO BIPOLAR I MIXED W PSYCHOTIC BEHAVIOR 05/18/2012 ANANYA MCBRIDE PSYD ANN L 296.64 MO BIPOLAR I MIXED W PSYCHOTIC BEHAVIOR 05/18/2012 ANANYA MCBRIDE PSYD ANN L 296.64 MO BIPOLAR I MIXED W PSYCHOTIC BEHAVIOR 05/18/2012 ANANYA MCBRIDE PSYD ANN L 296.64 MO BIPOLAR I MIXED W PSYCHOTIC BEHAVIOR 05/18/2012 RIOS DO, BOYD K 296.64 MO BIPOLAR I MIXED W PSYCHOTIC BEHAVIOR 05/18/2012 ANANYA MCBRIDE PSYD ANN L 296.64 MO BIPOLAR I MIXED W PSYCHOTIC BEHAVIOR 05/18/2012 ANANYA MCBRIDE PSYD ANN L 296.64 MO BIPOLAR I MIXED W PSYCHOTIC BEHAVIOR 05/18/2012 ALISSA PIERRE MD 296.64 MO BIPOLAR I MIXED W PSYCHOTIC BEHAVIOR 05/18/2012 ANANYA MCBRIDE PSYD ANN L 296.64 MO BIPOLAR I MIXED W PSYCHOTIC BEHAVIOR 05/18/2012 ANANYA MCBRIDE PSYD ANN L 296.64 MO BIPOLAR I MIXED W PSYCHOTIC BEHAVIOR 05/18/2012 ALTAGRACIA BENOIT APRN 296.64 MO BIPOLAR I MIXED W PSYCHOTIC BEHAVIOR 05/18/2012 ANANYA MCBRIDE PSYD ANN L 296.64 MO BIPOLAR I MIXED W PSYCHOTIC BEHAVIOR 05/18/2012 RIOS DO, BOYD K 296.64 MO BIPOLAR I MIXED W PSYCHOTIC BEHAVIOR 05/18/2012 ANANYA MCBRIDE PSYD ANN L 296.64 MO BIPOLAR I MIXED W PSYCHOTIC BEHAVIOR 05/18/2012 ANANYA MCBRIDE PSYD ANN L 296.64 MO BIPOLAR I MIXED W PSYCHOTIC BEHAVIOR 05/18/2012 ANANYA MCBRIDE PSYD ANN L 296.64 MO BIPOLAR I MIXED W PSYCHOTIC BEHAVIOR 06/02/2012 ANANYA MCBRIDE PSYD L 300.00 ANXIETY STATE UNSPECIFIED 06/02/2012 300.00 ANXIETY STATE UNSPECIFIED 06/02/2012 ANANYA MCBRIDE PSYD L 300.00 ANXIETY STATE UNSPECIFIED 06/02/2012 ANANYA MCBRIDE PSYD ANN L 300.00 ANXIETY STATE UNSPECIFIED 06/02/2012 300.00 ANXIETY STATE UNSPECIFIED 06/02/2012 300.00 ANXIETY STATE UNSPECIFIED 06/02/2012 300.00 ANXIETY STATE UNSPECIFIED 06/02/2012 300.00 ANXIETY STATE UNSPECIFIED 06/02/2012 300.00 ANXIETY STATE UNSPECIFIED 06/02/2012 ANANYA MCBRIDE PSYD ANN L 300.00 ANXIETY STATE UNSPECIFIED 06/02/2012 ANANYA MCBRIDE PSYD ANN L 300.00 ANXIETY STATE UNSPECIFIED 06/02/2012 ANANYA MCBRIDE PSYD ANN L 300.00 ANXIETY STATE UNSPECIFIED 06/02/2012 ANANYA MCBRIDE PSYD ANN L 300.00 ANXIETY STATE UNSPECIFIED 06/02/2012 ANANYA MCBRIDE PSYD ANN L 300.00 ANXIETY STATE UNSPECIFIED 06/02/2012 ANANYA MCBRIDE PSYD ANN L 300.00 ANXIETY STATE UNSPECIFIED 06/02/2012 ANANYA MCBRIDE PSYD ANN L 300.00 ANXIETY STATE UNSPECIFIED 06/02/2012 ANANYA MCBRIDE PSYD ANN L 300.00 ANXIETY STATE UNSPECIFIED 06/02/2012 ANANYA MCBRIDE PSYD ANN L 300.00 ANXIETY STATE UNSPECIFIED 06/02/2012 ANANYA MCBRIDE PSYD ANN L 300.00 ANXIETY STATE UNSPECIFIED 06/02/2012 ANANYA MCBRIDE PSYD ANN L 300.00 ANXIETY STATE UNSPECIFIED 06/02/2012 ANANYA MCBRIDE PSYD ANN L 300.00 ANXIETY STATE UNSPECIFIED 06/02/2012 RIOS DO, BOYD K 300.00 ANXIETY STATE UNSPECIFIED 06/02/2012 ANANYA MCBRIDE PSYD ANN L 300.00 ANXIETY STATE UNSPECIFIED 06/02/2012 ANANYA MCBRIDE PSYD ANN L 300.00 ANXIETY STATE UNSPECIFIED 06/02/2012 ANANYA MCBRIDE PSYD ANN L 300.00 ANXIETY STATE UNSPECIFIED 06/02/2012 LIDYA TORRES PA-C 300.00 ANXIETY STATE UNSPECIFIED 06/02/2012 ANANYA MCBRIDE PSYD ANN L 300.00 ANXIETY STATE UNSPECIFIED 06/02/2012 RIOS DO, BOYD K 300.00 ANXIETY STATE UNSPECIFIED 06/02/2012 ANANYA MCBRIDE PSYD ANN L 300.00 ANXIETY STATE UNSPECIFIED 06/02/2012 ANANYA MCBRIDE PSYD ANN L 300.00 ANXIETY STATE UNSPECIFIED 06/02/2012 ANANYA MCBRIDE PSYD ANN L 300.00 ANXIETY STATE UNSPECIFIED 06/02/2012 ANANYA MCBRIDE PSYD ANN L 300.00 ANXIETY STATE UNSPECIFIED 06/02/2012 ANANYA MCBRIDE PSYD ANN L 300.00 ANXIETY STATE UNSPECIFIED 06/02/2012 ANANYA MCBRIDE PSYD ANN L 300.00 ANXIETY STATE UNSPECIFIED 06/02/2012 ANANYA MCBRIDE PSYD ANN L 300.00 ANXIETY STATE UNSPECIFIED 06/02/2012 RIOS DO BOYD K 300.00 ANXIETY STATE UNSPECIFIED 06/02/2012 ANANYA MCBRIDE PSYD ANN L 300.00 ANXIETY STATE UNSPECIFIED 06/02/2012 ANANYA MCBRIDE PSYD ANN L 300.00 ANXIETY STATE UNSPECIFIED 06/02/2012 ANANYA MCBRIDE PSYD ANN L 300.00 ANXIETY STATE UNSPECIFIED 06/02/2012 RIOS DO BOYD K 300.00 ANXIETY STATE UNSPECIFIED 06/02/2012 ANANYA MCBRIDE PSYD ANN L 300.00 ANXIETY STATE UNSPECIFIED 06/02/2012 ANANYA MCBRIDE PSYD ANN L 300.00 ANXIETY STATE UNSPECIFIED 06/02/2012 ALISSA PIERRE MD 300.00 ANXIETY STATE UNSPECIFIED 06/02/2012 ANANYA MCBRIDE PSYD ANN L 300.00 ANXIETY STATE UNSPECIFIED 06/02/2012 ANANYA MCBRIDE PSYD ANN L 300.00 ANXIETY STATE UNSPECIFIED 06/02/2012 ALTAGRACIA BENOIT APRN 300.00 ANXIETY STATE UNSPECIFIED 06/02/2012 ANANYA MCBRIDE PSYD ANN L 300.00 ANXIETY STATE UNSPECIFIED 06/02/2012 RIOS DOCARMELITAA K 300.00 ANXIETY STATE UNSPECIFIED 06/02/2012 ANANYA MCBRIDE PSYD ANN L 300.00 ANXIETY STATE UNSPECIFIED 06/02/2012 ANANYA MCBRIDE PSYD ANN L 300.00 ANXIETY STATE UNSPECIFIED 06/02/2012 ANANYA MCBRIDE PSYD ANN L 300.00 ANXIETY STATE UNSPECIFIED 09/15/2013 GABRIEL GARG BOYD K 252.1 HYPOPARATHYROIDISM 09/15/2013 RIOS DO BOYD K 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 09/15/2013 RIOS DO BOYD K 388.70 OTALGIA UNSPECIFIED 09/15/2013 RIOS DO BOYD K 729.1 MYALGIA AND MYOSITIS UNSPECIFIED 09/15/2013 ANANYA MCBRIDE PSYD ANN L 252.1 HYPOPARATHYROIDISM 09/15/2013 ANANYA MCBRIDE PSYD ANN L 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 09/15/2013 ANANYA MCBRIDE PSYD L 388.70 OTALGIA UNSPECIFIED 09/15/2013 MCCLEEARY PSYD, CHRISTOPHER L 729.1 MYALGIA AND MYOSITIS UNSPECIFIED 09/15/2013 ANANYA MCBRIDE PSYD ANN L 252.1 HYPOPARATHYROIDISM 09/15/2013 ANANYA MCBRIDE PSYD L 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1 MYALGIA AND MYOSITIS UNSPECIFIED 09/15/2013 ANANYA MCBRIDE PSYD L 252.1 HYPOPARATHYROIDISM 09/15/2013 ANANYA MCBRIDE PSYD L 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 09/15/2013 ANANYA MCBRIDE PSYD L 388.70 OTALGIA UNSPECIFIED 09/15/2013 ANANYA MCBRIDE PSYD ANN L 729.1 MYALGIA AND MYOSITIS UNSPECIFIED 09/15/2013 CARMELITA RIOS DOA K 252.1 HYPOPARATHYROIDISM 09/15/2013 RIOS DO BOYD K 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 09/15/2013 RIOS DO BOYD K 388.70 OTALGIA UNSPECIFIED 09/15/2013 RIOS DO BOYD K 729.1 MYALGIA AND MYOSITIS UNSPECIFIED 09/15/2013 ANANYA MCBRIDE PSYD ANN L 252.1 HYPOPARATHYROIDISM 09/15/2013 ANANYA MCBRIDE PSYD ANN L 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 09/15/2013 ANANYA MCBRIDE PSYD ANN L 388.70 OTALGIA UNSPECIFIED 09/15/2013 ANANYA MCBRIDE PSYD ANN L 729.1 MYALGIA AND MYOSITIS UNSPECIFIED 09/15/2013 ANANYA MCBRIDE PSYD ANN L 252.1 HYPOPARATHYROIDISM 09/15/2013 ANANYA MCBRIDE PSYD ANN L 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 09/15/2013 ANANYA MCBRIDE PSYD ANN L 388.70 OTALGIA UNSPECIFIED 09/15/2013 ANANYA MCBRIDE PSYD ANN L 729.1 MYALGIA AND MYOSITIS UNSPECIFIED 09/15/2013 ANANYA MCBRIDE PSYD ANN L 252.1 HYPOPARATHYROIDISM 09/15/2013 ANANYA MCBRIDE PSYD ANN L 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 09/15/2013 ANANYA MCBRIDE PSYD ANN L 388.70 OTALGIA UNSPECIFIED 09/15/2013 ANANYA MCBRIDE PSYD ANN L 729.1 MYALGIA AND MYOSITIS UNSPECIFIED 09/15/2013 ANANYA MCBRIDE PSYD ANN L 252.1 HYPOPARATHYROIDISM 09/15/2013 ANANYA MCBRIDE PSYD ANN L 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 09/15/2013 ANANYA MCBRIDE PSYD ANN L 388.70 OTALGIA UNSPECIFIED 09/15/2013 ANANYA MCBRIDE PSYD ANN L 729.1 MYALGIA AND MYOSITIS UNSPECIFIED 09/15/2013 ANANYA MCBRIDE PSYD ANN L 252.1 HYPOPARATHYROIDISM 09/15/2013 ANANYA MCBRIDE PSYD ANN L 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 09/15/2013 ANANYA MCBRIDE PSYD ANN L 388.70 OTALGIA UNSPECIFIED 09/15/2013 ANANYA MCBRIDE PSYD ANN L 729.1 MYALGIA AND MYOSITIS UNSPECIFIED 09/15/2013 ANANYA MCBRIDE PSYD ANN L 252.1 HYPOPARATHYROIDISM 09/15/2013 ANANYA MCBRIDE PSYD ANN L 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 09/15/2013 ANANYA MCBRIDE PSYD ANN L 388.70 OTALGIA UNSPECIFIED 09/15/2013 ANANYA MCBRIDE PSYD ANN L 729.1 MYALGIA AND MYOSITIS UNSPECIFIED 09/15/2013 ANANYA MCBRIDE PSYD ANN L 252.1 HYPOPARATHYROIDISM 09/15/2013 ANANYA MCBRIDE PSYD ANN L 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 09/15/2013 ANANYA MCBRIDE PSYD ANN L 388.70 OTALGIA UNSPECIFIED 09/15/2013 ANANYA MCBRIDE PSYD ANN L 729.1 MYALGIA AND MYOSITIS UNSPECIFIED 09/15/2013 RIOS DO, BOYD K 252.1 HYPOPARATHYROIDISM 09/15/2013 RIOS DO, BOYD K 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 09/15/2013 RIOS DO, BOYD K 388.70 OTALGIA UNSPECIFIED 09/15/2013 RIOS DO BOYD K 729.1 MYALGIA AND MYOSITIS UNSPECIFIED 09/15/2013 ANANYA MCBRIDE PSYD ANN L 252.1 HYPOPARATHYROIDISM 09/15/2013 ANANYA MCBRIDE PSYD ANN L 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 09/15/2013 ANANYA MCBRIDE PSYD ANN L 388.70 OTALGIA UNSPECIFIED 09/15/2013 ANANYA MCBRIDE PSYD ANN L 729.1 MYALGIA AND MYOSITIS UNSPECIFIED 09/15/2013 ANANYA MCBRIDE PSYD ANN L 252.1 HYPOPARATHYROIDISM 09/15/2013 ANANYA MCBRIDE PSYD ANN L 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 09/15/2013 ANANYA MCBRIDE PSYD ANN L 388.70 OTALGIA UNSPECIFIED 09/15/2013 ANANYA MCBRIDE PSYD ANN L 729.1 MYALGIA AND MYOSITIS UNSPECIFIED 09/15/2013 ANANYA MCBRIDE PSYD ANN L 252.1 HYPOPARATHYROIDISM 09/15/2013 ANANYA MCBRIDE PSYD ANN L 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 09/15/2013 ANANYA MCBRIDE PSYD ANN L 388.70 OTALGIA UNSPECIFIED 09/15/2013 ANANYA MCBRIDE PSYD ANN L 729.1 MYALGIA AND MYOSITIS UNSPECIFIED 09/15/2013 GABRIEL GARGBOYD K 252.1 HYPOPARATHYROIDISM 09/15/2013 GABRIEL GARGBOYD K 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 09/15/2013 RIOS BOYD K 388.70 OTALGIA UNSPECIFIED 09/15/2013 GABRIEL GARG, BOYD K 729.1 MYALGIA AND MYOSITIS UNSPECIFIED 09/15/2013 ANANYA MCBRIDE PSYD L 252.1 HYPOPARATHYROIDISM 09/15/2013 ANANYA MCBRIDE PSYD ANN L 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 09/15/2013 ANANYA MCBRIDE PSYD L 388.70 OTALGIA UNSPECIFIED 09/15/2013 ANANYA MCBRIDE PSYD ANN L 729.1 MYALGIA AND MYOSITIS UNSPECIFIED 09/15/2013 ANANYA MCBRIDE PSYD ANN L 252.1 HYPOPARATHYROIDISM 09/15/2013 ANANYA MCBRIDE PSYD L 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1 MYALGIA AND MYOSITIS UNSPECIFIED 09/15/2013 ANANYA MCBRIDE PSYD ANN L 252.1 HYPOPARATHYROIDISM 09/15/2013 ANANYA MCBRIDE PSYD L 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 09/15/2013 ANANYA MCBRIDE PSYD ANN L 388.70 OTALGIA UNSPECIFIED 09/15/2013 ANANYA MCBRIDE PSYD ANN L 729.1 MYALGIA AND MYOSITIS UNSPECIFIED 09/15/2013 KAYCEE METEOROLOGY INSTRUCTOR, ALTAGRACIA A 252.1 HYPOPARATHYROIDISM 09/15/2013 KAYCEE METEOROLOGY INSTRUCTOR, ALTAGRACIA A 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 09/15/2013 RAJANGIEE METEOROLOGY INSTRUCTOR, ALTAGRACIA A 388.70 OTALGIA UNSPECIFIED 09/15/2013 RAJANGIEE METEOROLOGY INSTRUCTOR, ALTAGRACIA A 729.1 MYALGIA AND MYOSITIS UNSPECIFIED 09/15/2013 ANANYA MCBRIDE PSYD ANN L 252.1 HYPOPARATHYROIDISM 09/15/2013 ANANYA MCBRIDE PSYD L 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 09/15/2013 ANANYA MCBRIDE PSYD L 388.70 OTALGIA UNSPECIFIED 09/15/2013 ANANYA MCBRIDE PSYD ANN L 729.1 MYALGIA AND MYOSITIS UNSPECIFIED 09/15/2013 RIOS DO BOYD K 252.1 HYPOPARATHYROIDISM 09/15/2013 RIOS DO BOYD K 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 09/15/2013 RIOS DO BOYD K 388.70 OTALGIA UNSPECIFIED 09/15/2013 RIOS DO BOYD K 729.1 MYALGIA AND MYOSITIS UNSPECIFIED 09/15/2013 ANANYA MCBRIDE PSYD ANN L 252.1 HYPOPARATHYROIDISM 09/15/2013 ANANYA MCBRIDE PSYD ANN L 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 09/15/2013 ANANYA MCBRIDE PSYD ANN L 388.70 OTALGIA UNSPECIFIED 09/15/2013 ANANYA MCBRIDE PSYD ANN L 729.1 MYALGIA AND MYOSITIS UNSPECIFIED 09/15/2013 ANANYA MCBRIDE PSYD ANN L 252.1 HYPOPARATHYROIDISM 09/15/2013 ANANYA MCBRIDE PSYD ANN L 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 09/15/2013 ANANYA MCBRIDE PSYD ANN L 388.70 OTALGIA UNSPECIFIED 09/15/2013 ANANYA MCBRIDE PSYD L 729.1 MYALGIA AND MYOSITIS UNSPECIFIED 09/15/2013 ANANYA MCBRIDE PSYD ANN L 252.1 HYPOPARATHYROIDISM 09/15/2013 ANANYA MCBRIDE PSYD L 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 09/15/2013 ANANYA MCBRIDE PSYD L 388.70 OTALGIA UNSPECIFIED 09/15/2013 ANANYA MCBRIDE PSYD L 729.1 MYALGIA AND MYOSITIS UNSPECIFIED 09/21/2013 ANANYA MCBRIDE PSYD ANN L 300.15 DS DISSOCIATIVE DIS NOS 09/21/2013 ANANYA MCBRIDE PSYD ANN L 300.15 DS DISSOCIATIVE DIS NOS 09/21/2013 ANANYA MCBRIDE PSYD ANN L 300.15 DS DISSOCIATIVE DIS NOS 09/21/2013 LIDYA TORRES PA-C 300.15 DS DISSOCIATIVE DIS NOS 09/21/2013 ANANYA MCBRIDE PSYD ANN L 300.15 DS DISSOCIATIVE DIS NOS 09/21/2013 BOYD RIOS DO K 300.15 DS DISSOCIATIVE DIS NOS 09/21/2013 ANANYA MCBRIDE PSYD ANN L 300.15 DS DISSOCIATIVE DIS NOS 09/21/2013 ANANYA MCBRIDE PSYD ANN L 300.15 DS DISSOCIATIVE DIS NOS 09/21/2013 ANANYA MCBRIDE PSYD ANN L 300.15 DS DISSOCIATIVE DIS NOS 09/21/2013 ANANYA MCBRIDE PSYD ANN L 300.15 DS DISSOCIATIVE DIS NOS 09/21/2013 ANANYA MCBRIDE PSYD ANN L 300.15 DS DISSOCIATIVE DIS NOS 09/21/2013 ANANYA MCBRIDE PSYD ANN L 300.15 DS DISSOCIATIVE DIS NOS 09/21/2013 ANANYA MCRBIDE PSYD ANN L 300.15 DS DISSOCIATIVE DIS NOS 09/21/2013 GABRIEL GARG BOYD K 300.15 DS DISSOCIATIVE DIS NOS 09/21/2013 ANANYA MCBRIDE PSYD ANN L 300.15 DS DISSOCIATIVE DIS NOS 09/21/2013 ANANYA MCBRIDE PSYD ANN L 300.15 DS DISSOCIATIVE DIS NOS 09/21/2013 ANANYA MCBRIDE PSYD ANN L 300.15 DS DISSOCIATIVE DIS NOS 09/21/2013 RIOS CARMELITA GARGA K 300.15 DS DISSOCIATIVE DIS NOS 09/21/2013 ANANYA MCBRIDE PSYD L 300.15 DS DISSOCIATIVE DIS NOS 09/21/2013 ANANYA MCBRIDE PSYD ANN L 300.15 DS DISSOCIATIVE DIS NOS 09/21/2013 ALISSA PIERRE MD 300.15 DS DISSOCIATIVE DIS NOS 09/21/2013 ANANYA MCBRIDE PSYD L 300.15 DS DISSOCIATIVE DIS NOS 09/21/2013 ANANYA MCBRIDE PSYD ANN L 300.15 DS DISSOCIATIVE DIS NOS 09/21/2013 ALTAGRACIA BENOIT APRN A 300.15 DS DISSOCIATIVE DIS NOS 09/21/2013 ANANYA MCBRIDE PSYD ANN L 300.15 DS DISSOCIATIVE DIS NOS 09/21/2013 BOYD RIOS DO K 300.15 DS DISSOCIATIVE DIS NOS 09/21/2013 ANANYA MCBRIDE PSYD ANN L 300.15 DS DISSOCIATIVE DIS NOS 09/21/2013 ANANYA MCBRIDE PSYD L 300.15 DS DISSOCIATIVE DIS NOS 09/21/2013 ANANYA MCBRIDE PSYD ANN L 300.15 DS DISSOCIATIVE DIS NOS 01/12/2014 RIOS BOYD GARG K V70.0 ROUTINE GENERAL MEDICAL EXAMINATION AT A HEALTH CARE FACILITY 01/12/2014 ANANYA MCBRIDE PSYD L V70.0 ROUTINE GENERAL MEDICAL EXAMINATION AT A HEALTH CARE FACILITY 01/12/2014 ANANYA MCBRIDE PSYD L V70.0 ROUTINE GENERAL MEDICAL EXAMINATION AT A HEALTH CARE FACILITY 01/12/2014 ANANYA MCBRIDE PSYD L V70.0 ROUTINE GENERAL MEDICAL EXAMINATION AT A HEALTH CARE FACILITY 01/12/2014 BOYD RIOS DO K V70.0 ROUTINE GENERAL MEDICAL EXAMINATION AT A HEALTH CARE FACILITY 01/12/2014 ANANYA MCBRIDE PSYD L V70.0 ROUTINE GENERAL MEDICAL EXAMINATION AT A HEALTH CARE FACILITY 01/12/2014 ANANYA MCBRIDE PSYD L V70.0 ROUTINE GENERAL MEDICAL EXAMINATION AT A HEALTH CARE FACILITY 01/12/2014 ALISSA PIERRE MD V70.0 ROUTINE GENERAL MEDICAL EXAMINATION AT A HEALTH CARE FACILITY 01/12/2014 ANANYA MCBRIDE PSYD L V70.0 ROUTINE GENERAL MEDICAL EXAMINATION AT A HEALTH CARE FACILITY 01/12/2014 ANANYA MCBRIDE PSYD L V70.0 ROUTINE GENERAL MEDICAL EXAMINATION AT A HEALTH CARE FACILITY 01/12/2014 ALTAGRACIA BENOIT APRN A V70.0 ROUTINE GENERAL MEDICAL EXAMINATION AT A HEALTH CARE FACILITY 01/12/2014 ANANYA MCBRIDE PSYD L V70.0 ROUTINE GENERAL MEDICAL EXAMINATION AT A HEALTH CARE FACILITY 01/12/2014 BOYD RIOS DO K V70.0 ROUTINE GENERAL MEDICAL EXAMINATION AT A HEALTH CARE FACILITY 01/12/2014 ANANYA MCBRIDE PSYD L V70.0 ROUTINE GENERAL MEDICAL EXAMINATION AT A HEALTH CARE FACILITY 01/12/2014 ANANYA MCBRIDE PSYD L V70.0 ROUTINE GENERAL MEDICAL EXAMINATION AT A HEALTH CARE FACILITY 01/12/2014 ANANYA MCBRIDE PSYD L V70.0 ROUTINE GENERAL MEDICAL EXAMINATION AT A HEALTH CARE FACILITY 03/12/2014 BOYD RIOS DO K 718.01 ARTICULAR CARTILAGE DISORDER INVOLVING SHOULDER REGION 03/12/2014 BOYD RIOS DO 719.41 PAIN- SHOULDER 03/12/2014 ANANYA MCBRIDE PSYD L 718.01 ARTICULAR CARTILAGE DISORDER INVOLVING SHOULDER REGION 03/12/2014 ANANYA MCBRIDE PSYD L 719.41 PAIN- SHOULDER 03/12/2014 ANANYA MCBRIDE PSYD L 718.01 ARTICULAR CARTILAGE DISORDER INVOLVING SHOULDER REGION 03/12/2014 ANANYA MCBRIDE PSYD L 719.41 PAIN- SHOULDER 03/12/2014 ALISSA PIERRE MD 718.01 ARTICULAR CARTILAGE DISORDER INVOLVING SHOULDER REGION 03/12/2014 ALISSA PIERRE MD 719.41 PAIN- SHOULDER 03/12/2014 ANANYA MCBRIDE PSYD L 718.01 ARTICULAR CARTILAGE DISORDER INVOLVING SHOULDER REGION 03/12/2014 ANANYA MCBRIDE PSYD L 719.41 PAIN- SHOULDER 03/12/2014 ANANYA MCBRIDE PSYD L 718.01 ARTICULAR CARTILAGE DISORDER INVOLVING SHOULDER REGION 03/12/2014 ANANYA MCBRIDE PSYD L 719.41 PAIN- SHOULDER 03/12/2014 ALTAGRACIA BENOIT APRN A 718.01 ARTICULAR CARTILAGE DISORDER INVOLVING SHOULDER REGION 03/12/2014 ALTAGRACIA BENOIT APRN A 719.41 PAIN- SHOULDER 03/12/2014 ANANYA MCBRIDE PSYD L 718.01 ARTICULAR CARTILAGE DISORDER INVOLVING SHOULDER REGION 03/12/2014 ANANYA MCBRIDE PSYD 719.41 PAIN- SHOULDER 03/12/2014 BOYD RIOS DO 718.01 ARTICULAR CARTILAGE DISORDER INVOLVING SHOULDER REGION 03/12/2014 BOYD RIOS DO 719.41 PAIN- SHOULDER 03/12/2014 ANANYA MCBRIDE PSYD L 718.01 ARTICULAR CARTILAGE DISORDER INVOLVING SHOULDER REGION 03/12/2014 ANANYA MCBRIDE PSYD 719.41 PAIN- SHOULDER 03/12/2014 ANANYA MCBRIDE PSYD L 718.01 ARTICULAR CARTILAGE DISORDER INVOLVING SHOULDER REGION 03/12/2014 ANANYA MCBRIDE PSYD 719.41 PAIN- SHOULDER 03/12/2014 ANANYA MCBRIDE PSYD 718.01 ARTICULAR CARTILAGE DISORDER INVOLVING SHOULDER REGION 03/12/2014 ANANYA MCBRIDE PSYD 719.41 PAIN- SHOULDER 07/27/2014 ALTAGRACIA BENOIT APRN 719.47 PAIN- FOOT 07/27/2014 ANANYA MCBRIDE PSYD 719.47 PAIN- FOOT 07/27/2014 BOYD RIOS DO 719.47 PAIN- FOOT 07/27/2014 ANANYA MCBRIDE PSYD 719.47 PAIN- FOOT 07/27/2014 ANANYA MCBRIDE PSYD 719.47 PAIN- FOOT 07/27/2014 ANANYA MCBRIDE PSYD 719.47 PAIN- FOOT 07/31/2014 BOYD RIOS DO 368.8 OTHER SPECIFIED VISUAL DISTURBANCES 07/31/2014 BOYD RIOS DO 790.29 OTHER ABNORMAL GLUCOSE 07/31/2014 BOYD RIOS DO V18.0 FAMILY HISTORY OF DIABETES MELLITUS 07/31/2014 ANANYA MCBRIDE PSYD L 368.8 OTHER SPECIFIED VISUAL DISTURBANCES 07/31/2014 ANANYA MCBRIDE PSYD L 790.29 OTHER ABNORMAL GLUCOSE 07/31/2014 ANANYA MCBRIDE PSYD L V18.0 FAMILY HISTORY OF DIABETES MELLITUS 07/31/2014 ANANYA MCBRIDE PSYD L 368.8 OTHER SPECIFIED VISUAL DISTURBANCES 07/31/2014 ANANYA MCBRIDE PSYD ANN L 790.29 OTHER ABNORMAL GLUCOSE 07/31/2014 ANANYA MCBRIDE PSYD L V18.0 FAMILY HISTORY OF DIABETES MELLITUS 07/31/2014 ANANYA MCBRIDE PSYD L 368.8 OTHER SPECIFIED VISUAL DISTURBANCES 07/31/2014 ANANYA MCBRIDE PSYD L 790.29 OTHER ABNORMAL GLUCOSE 07/31/2014 ANANYA MCBRIDE PSYD L V18.0 FAMILY HISTORY OF DIABETES MELLITUS 08/21/2014 ANANYA MCBRIDE PSYD L 296.90 MOOD DISORDER 08/21/2014 ANANYA MCBRIDE PSYD ANN L 300.00 ANXIETY UNSPEC 08/21/2014 ANANYA MCBRIDE PSYD ANN L 309.29 EXCITABILITY 08/21/2014 ANANYA MCBRIDE PSYD ANN L 296.90 MOOD DISORDER 08/21/2014 ANANYA MCBRIDE PSYD L 300.00 ANXIETY UNSPEC 08/21/2014 ANANYA MCBRIDE PSYD ANN L 309.29 EXCITABILITY 08/21/2014 ANANYA MCBRIDE PSYD ANN L 296.90 MOOD DISORDER 08/21/2014 ANANYA MCBRIDE PSYD ANN L 300.00 ANXIETY UNSPEC 08/21/2014 ANANYA MCBRIDE PSYD ANN L 309.29 EXCITABILITY 09/14/2014 ANANYA MCBRIDE PSYD L 784.0 HEADACHE 09/14/2014 ANANYA MCBRIDE PSYD L 784.0 HEADACHE 09/14/2014 ANANYA MCBRIDE PSYD L 784.0 HEADACHE 10/02/2014 ANANYA MCBRIDE PSYD ANN L 296.31 MO DEPRESSIVE RECURRENT MILD 10/02/2014 ANANYA MCBRIDE PSYD ANN L 296.31 MO DEPRESSIVE RECURRENT MILD 10/02/2014 ANANYA MCBRIDE PSYD ANN L 296.31 MO DEPRESSIVE RECURRENT MILD Procedures Code [place] [address] INDIV PSYTX 45/50 MIN 05/18/2012 29343 INDIV PSYTX 45/50 MIN 06/06/2012 73587 INDIV PSYTX 45/50 MIN 06/16/2012 56872 INDIV PSYTX 20/30 MIN 06/29/2012 09963 PSYTX PT&/FAMILY 30 MINUTES 07/28/2012 68800 PSYTX PT&/FAMILY 45 MINUTES 07/28/2012 46600 PSYTX PT&/FAMILY 45 MINUTES 08/22/2012 84074 PSYTX PT&/FAMILY 45 MINUTES 09/07/2012 70518 PSYTX PT&/FAMILY 45 MINUTES 09/07/2012 16302 PSYTX PT&/FAMILY 45 MINUTES 10/25/2012 42655 PSYTX PT&/FAMILY 45 MINUTES 10/25/2012 37875 PSYTX PT&/FAMILY 45 MINUTES 11/01/2012 82731 PSYTX PT&/FAMILY 45 MINUTES 11/18/2012 35157 PSYTX PT&/FAMILY 30 MINUTES 12/13/2012 52007 PSYTX PT&/FAMILY 45 MINUTES 12/21/2012 15994 PSYTX PT&/FAMILY 45 MINUTES 01/03/2013 66693 PSYTX PT&/FAMILY 45 MINUTES 05/25/2013 26780 PSYTX PT&/FAMILY 45 MINUTES 06/01/2013 22441 PSYTX PT&/FAMILY 45 MINUTES 06/08/2013 46484 PSYTX PT&/FAMILY 45 MINUTES 06/22/2013 99236 PSYTX PT&/FAMILY 45 MINUTES 06/29/2013 87436 PSYTX PT&/FAMILY 45 MINUTES 07/06/2013 04075 PSYTX PT&/FAMILY 45 MINUTES 07/20/2013 84594 PSYTX PT&/FAMILY 45 MINUTES 07/27/2013 49686 PSYTX PT&/FAMILY 45 MINUTES 08/08/2013 35412 PSYTX PT&/FAMILY 45 MINUTES 08/25/2013 76631 PSYTX PT&/FAMILY 45 MINUTES 08/31/2013 58670 PSYTX PT&/FAMILY 45 MINUTES 09/07/2013 62267 PSYTX PT&/FAMILY 45 MINUTES 09/21/2013 72906 PSYTX PT&/FAMILY 45 MINUTES 09/28/2013 85303 PSYTX PT&/FAMILY 45 MINUTES 10/05/2013 41498 ROUTINE VENIPUNCTURE 10/12/2013 62259 CMP 10/12/2013 2061359 GFR CALC (RESULT ONLY) 10/12/2013 THYANA THYROID ANALYZER 10/12/2013 52818 PSYTX PT&/FAMILY 45 MINUTES 10/12/2013 09863 PSYTX PT&/FAMILY 45 MINUTES 10/19/2013 94438 PSYTX PT&/FAMILY 45 MINUTES 11/02/2013 09807 PSYTX PT&/FAMILY 45 MINUTES 11/09/2013 38430 PSYTX PT&/FAMILY 45 MINUTES 11/16/2013 25719 PSYTX PT&/FAMILY 45 MINUTES 11/23/2013 47277 PSYTX PT&/FAMILY 45 MINUTES 12/07/2013 82879 PSYTX PT&/FAMILY 45 MINUTES 12/14/2013 26242 PSYTX PT&/FAMILY 45 MINUTES 12/29/2013 71073 ROUTINE VENIPUNCTURE 01/18/2014 0869529 GFR CALC (RESULT ONLY) 01/18/2014 25841 CMP 01/18/2014 91377 PSYTX PT&/FAMILY 45 MINUTES 01/18/2014 THYANA THYROID ANALYZER 01/18/2014 42764 PSYTX PT&/FAMILY 45 MINUTES 02/01/2014 69376 PSYTX PT&/FAMILY 45 MINUTES 02/15/2014 54406 JOINT INJECTION- LARGE JOINT (SPECIFY MEDCIN DESCRIPTION) 03/13/2014 18422 PSYTX PT&/FAMILY 45 MINUTES 03/23/2014 04125 PSYTX PT&/FAMILY 30 MINUTES 04/06/2014 60442 PSYTX PT&/FAMILY 45 MINUTES 05/25/2014 02607 PSYTX PT&/FAMILY 45 MINUTES 07/06/2014 50011 ROUTINE VENIPUNCTURE 07/27/2014 2072280 GFR CALC (RESULT ONLY) 07/27/2014 29695 CMP 07/27/2014 43736 URIC ACID 07/27/2014 THYANA THYROID ANALYZER 07/27/2014 57561 T4 FREE 07/27/2014 69273 PSYTX PT&/FAMILY 45 MINUTES 07/30/2014 27533 A1C (IN-HOUSE) 07/31/2014 73626 PSYTX PT&/FAMILY 30 MINUTES 10/16/2014 36282 PSYTX PT&/FAMILY 30 MINUTES 11/06/2014 Results There is no data. Encounters ACCT No. Visit Date/Time Discharge Status Pt. Type Provider Facility Loc./Unit Complaint [id number] 11/06/2014 14:59:00 11/06/2014 23:59:59 CLS Outpatient ANANYA MCBRIDE PSYD [id number] 10/16/2014 15:19:00 10/16/2014 23:59:59 CLS Outpatient ANANYA MCBRIDE PSYD [id number] 10/02/2014 14:52:00 10/02/2014 23:59:59 CLS Outpatient ANANYA MCBRIDE PSYD [id number] 08/21/2014 11:03:00 08/21/2014 23:59:59 CLS Outpatient ALTAGRACIA BENOIT APRN [id number] 07/31/2014 11:27:00 07/31/2014 23:59:59 CLS Outpatient BOYD RIOS DO Giovanny [id number] 07/31/2014 11:27:00 07/31/2014 23:59:59 CLS Outpatient BOYD RIOS DO Giovanny [id number] 07/30/2014 13:52:00 07/30/2014 23:59:59 CLS Outpatient ANANYA MCBRIDE PSYD [id number] 07/27/2014 14:18:00 07/27/2014 23:59:59 CLS Outpatient ALTAGRACIA BENOIT APRN [id number] 07/06/2014 08:18:00 07/06/2014 23:59:59 CLS Outpatient ANANYA MCBRIDE PSYD [id number] 05/25/2014 08:01:00 05/25/2014 23:59:59 CLS Outpatient ANANYA MCBRIDE PSYD [id number] 04/27/2014 09:49:00 04/27/2014 23:59:59 CLS Outpatient ALISSA PIERRE MD [id number] 04/06/2014 08:11:00 04/06/2014 23:59:59 CLS Outpatient ANANYA MCBRIDE PSYD [id number] 03/23/2014 09:56:00 03/23/2014 23:59:59 CLS Outpatient ANANYA MCBRIDE PSYD [id number] 03/12/2014 17:20:00 03/12/2014 23:59:59 CLS Outpatient CARMELITA RIOS DONorsi Baltazar [id number] 02/15/2014 07:56:00 02/15/2014 23:59:59 CLS Outpatient ANANYA MCBRIDE PSYD [id number] 02/01/2014 08:01:00 02/01/2014 23:59:59 CLS Outpatient REGGIEEARY ANANYA JUAREZ [id number] 01/18/2014 07:44:00 01/18/2014 23:59:59 CLS Outpatient REGGIEEARY ANANYA JUAREZ [id number] 01/12/2014 09:07:00 01/12/2014 23:59:59 CLS Outpatient BOYD RIOS DO [id number] 12/28/2013 08:02:00 12/28/2013 23:59:59 CLS Outpatient KRISTALLEEARY ANANYA JUAREZ [id number] 12/14/2013 08:00:00 12/14/2013 23:59:59 CLS Outpatient NIKOLAIY ANANYA JUAREZ [id number] 12/07/2013 07:59:00 12/07/2013 23:59:59 CLS Outpatient ANANYA MCBRIDE PSYD [id number] 11/23/2013 08:11:00 11/23/2013 23:59:59 CLS Outpatient NIKOLAIY ANANYA JUAREZ [id number] 11/16/2013 08:07:00 11/16/2013 23:59:59 CLS Outpatient REGGIEEARY ANANYA JUAREZ [id number] 11/09/2013 07:56:00 11/09/2013 23:59:59 CLS Outpatient ANANYA MCBRIDE PSYD [id number] 11/02/2013 07:54:00 11/02/2013 23:59:59 CLS Outpatient ANANYA MCBRIDE PSYD [id number] 10/27/2013 10:31:00 10/27/2013 23:59:59 CLS Outpatient GABRIEL GARGBOYD [id number] 10/19/2013 07:50:00 10/19/2013 23:59:59 CLS Outpatient ANANYA MCBRIDE PSYD [id number] 10/12/2013 08:58:00 10/12/2013 23:59:59 CLS Outpatient LIDYA TORRES PA-C [id number] 10/05/2013 08:07:00 10/05/2013 23:59:59 CLS Outpatient ANANYA MCBRIDE PSYD [id number] 09/28/2013 08:05:00 09/28/2013 23:59:59 CLS Outpatient MCCLEEARY ANANYA JUAREZ [id number] 09/21/2013 08:10:00 09/21/2013 23:59:59 CLS Outpatient KRISTALLEEARY ANANYA JUAREZ [id number] 09/15/2013 08:14:00 09/15/2013 23:59:59 CLS Outpatient BOYD RIOS DO [id number] 09/07/2013 08:12:00 09/07/2013 23:59:59 CLS Outpatient MCCLEEARY ANANYA JUAREZ [id number] 08/31/2013 08:01:00 08/31/2013 23:59:59 CLS Outpatient MCCLEEARY PSANANYA FORD L [id number] 08/24/2013 07:58:00 08/24/2013 23:59:59 CLS Outpatient KRISTALLEEARY ANANYA JUAREZ [id number] 08/03/2013 07:59:00 08/03/2013 23:59:59 CLS Outpatient REGGIEEARY ANANYA JUAREZ [id number] 07/27/2013 08:05:00 07/27/2013 23:59:59 CLS Outpatient KRISTALLEEARY ANANYA JUAREZ [id number] 07/20/2013 08:16:00 07/20/2013 23:59:59 CLS Outpatient NIKOLAIY ANANYA JUAREZ [id number] 07/06/2013 08:08:00 07/06/2013 23:59:59 CLS Outpatient KRISTALLEEARY ANANYA JUAREZ [id number] 06/29/2013 08:06:00 06/29/2013 23:59:59 CLS Outpatient MCCLEEARY ANANYA JUAREZ [id number] 06/22/2013 07:56:00 06/22/2013 23:59:59 CLS Outpatient MCCLEEARY PSANANYA FORD L [id number] 06/08/2013 07:50:00 06/08/2013 23:59:59 CLS Outpatient REGGIEEARY ANANYA JUAREZ L [id number] 06/01/2013 08:00:00 06/01/2013 23:59:59 CLS Outpatient KRISTALLEEARY ANANYA JUAREZ [id number] 05/25/2013 08:01:00 05/25/2013 23:59:59 CLS Outpatient KRISTALLEEARY ANANYA JUAREZ L [id number] 10/21/2012 08:06:00 10/21/2012 23:59:59 CLS Outpatient ANANYA MCBIRDE PSYD [id number] 09/06/2012 07:52:00 09/06/2012 23:59:59 CLS Outpatient ANANYA MCBRIDE PSYD [id number] 08/18/2012 14:04:00 08/18/2012 23:59:59 CLS Outpatient [id number] 07/28/2012 08:06:00 07/28/2012 23:59:59 CLS Outpatient ANANYA MCBRIDE PSYD [id number] 06/23/2012 07:59:00 06/23/2012 23:59:59 CLS Outpatient ANANYA MCBRIDE PSYD [id number] 05/18/2012 07:55:00 05/18/2012 23:59:59 CLS Outpatient ANANYA MCBRIDE PSYD [id number] 01/03/2013 08:04:00 Document Registration [id number] 12/20/2012 08:07:00 Document Registration [id number] 12/13/2012 08:05:00 Document Registration [id number] 11/15/2012 07:57:00 Document Registration [id number] 11/01/2012 07:58:00 Document Registration
--- NOTE | 2018-10-30 10:26 | ED Lower Extremity ---
General Chief Complaint: Lower Extremity Stated Complaint: LFT ANKLE PAIN Source: patient Exam Limitations: no limitations History of Present Illness Date Seen by Provider: Oct 30, 2018 Time Seen by Provider: 10:21 Initial Comments This 48-year-old white female presents with left ankle pain. A month ago the patient sustained a minor injury to her left ankle while pushing her father in a wheelchair. The patient has subsequently experienced progressive pain and swelling over the malleoli of the left ankle. The patient has had a previous left ankle surgery 25 years ago. The patient denies other joint pain. She denies erythema although she is having soft tissue swelling. Next The patient has been using tramadol for pain. Allergies and Home Medications Allergies Coded Allergies: Iodinated Contrast Media - IV Dye (Verified Allergy, Severe, ANAPHYLAXIS, 09/18/14) Penicillins (Unverified Allergy, Mild, 05/03/09) aspirin (Unverified Allergy, Mild, 05/03/09) chlorpromazine (Unverified Allergy, Mild, 05/03/09) duloxetine HCl (Verified Allergy, Mild, 06/13/12) iodine (Unverified Allergy, Mild, 05/03/09) lamotrigine (Unverified Allergy, Mild, 05/03/09) latex (Unverified Allergy, Mild, 05/03/09) morphine (Unverified Allergy, Mild, 05/03/09) adhesive (Unverified Allergy, Unknown, BLISTERING, 09/18/14) levofloxacin (Unverified Allergy, Unknown, RASH, 09/18/14) Home Medications Calcitriol 0.25 Mcg Capsule, 0.25 MCG PO TID, (Reported) Gabapentin 300 Mg Capsule, 300 MG PO BID PRN for PAIN ONCE A DAY ON DAY 1, TWICE A DAY ON DAY 2, THEN THREE TIMES A DAY FOR PAIN Prescribed by: LIDYA MEANS on 09/18/14 6615 Tramadol Hcl 50 Mg Tablet, 50 MG PO PRN, (Reported) Patient Home Medication List Home Medication List Reviewed: Yes Review of Systems Constitutional: No chills, No fever EENTM: No hearing loss, No vision loss Respiratory: No cough Cardiovascular: No chest pain Gastrointestinal: No abdominal pain, No nausea, No vomiting Genitourinary: No dysuria, No frequency Musculoskeletal: see HPI, joint pain (left ankle) Skin: No change in color, No rash Psychiatric/Neurological: No Symptoms Reported Past Apnpmjd-Lzjfqd-Pbfbzi Hx Past Med/Social Hx: Reviewed Nursing Past Med/Soc Hx Patient Social History Recent Foreign Travel: No Contact w/Someone Who Travel: No Seasonal Allergies Seasonal Allergies: No Past Medical History Cardiac, Section, Gallbladder, Hysterectomy, Orthopedic, Thyroidectomy Reproductive Disorders: No [employer]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 oz. 83.936577zw; BMI Method:Stated General Appearance: WD/WN, mild distress HEENT: normal ENT inspection Cardiovascular: regular rate, rhythm Respiratory: normal breath sounds Gastrointestinal: normal bowel sounds Back: normal inspection Ankles: left ankle pain, left ankle soft tissue tenderness, left ankle swelling Neurologic/Tendon: normal sensation, normal motor functions Neurologic/Psychiatric: no motor/sensory deficits, alert Skin: normal color, warm/dry; No rash Progress/Results/Core Measures Results/Orders My Orders Orders - IVET MONTALVO MD Ankle, Left, 3 Views (10/30/18 10:20) Erythrocyte Sedimentation Rate (10/30/18 11:28) Cbc With Automated Diff (10/30/18 11:28) Uric Acid (10/30/18 11:28) Rheumatoid Factor (10/30/18 11:28) Vital Signs/I&O 10/30/18 10:02 Temp 99.7 Pulse 94 Resp 20 B/P (MAP) 134/89 (104) Pulse Ox 97 O2 Delivery Room Air Progress Progress Note : Time: 11:30 Progress Note Patient's x-ray of the ankle demonstrate soft tissue swelling but no evidence of fracture or dislocation. Tests for inflammation and arthritides were drawn including a CBC, sedimentation rate, uric acid, and rheumatoid factor. The patient had been using tramadol and ibuprofen with moderate success. I asked her to continue with this until she can follow-up with her physician, Dr. Kendall tomorrow. I invited her to return to emergency department if any further problems or questions. Departure Impression Primary Impression: Ankle pain Qualified Codes: M25.572 - Pain in left ankle and joints of left foot Disposition: 01 HOME, SELF-CARE Condition: Improved Departure-Patient Inst. Decision time for Depature: 11:32 Referrals: MALINA KENDALL MD (PCP/Family) Primary Care Physician Patient Instructions: Joint Pain Add. Discharge Instructions: Follow-up with Dr. Porter tomorrow. Ultram and ibuprofen as prescribed. [place]: Epsom salts. Employing the ankle brace for support. Return if any problems or questions. All discharge instructions reviewed with patient and/or family. Voiced understanding. Scripts Ibuprofen (Ibuprofen) 600 Mg Tablet 600 MG PO Q6H PRN for PAIN-MILD, #20 TAB Prov: IVET MONTALVO MD 10/30/18 Tramadol HCl (Tramadol HCl) 50 Mg Tablet 50 MG PO q6 for Pain, #20 TAB Prov: IVET MONTALVO MD 10/30/18 IVET MONTALVO MD Oct 30, 2018 10:26
--- NOTE | 2018-10-30 10:49 | Diagnostic Imaging Report ---
Indication: Left ankle pain for 4 weeks. Comparison: 05/30/2014. Discussion: Three views of the left ankle were obtained. Mild soft tissue swelling. The ankle mortise is symmetric. No acute fracture or dislocation. Tiny ossicles noted posterior to the ankle joint. No acute fracture or dislocation. Impression: 1. Left ankle soft tissue swelling. No fracture. Dictated by: Dictated on workstation # [id number]
[2018-10-30] MEDS ORDERED: IBUP-1773 PO (11:35)
[2018-10-30] MEDS ORDERED: TRAM50TA2 PO (11:35)
[2018-10-30 11:53] VITALS: BP 127/91
[2018-10-30 11:57] LABS: BASOPHILS % (AUTO) 0 % (0-10); EOSINOPHILS # (AUTO) 0.1 10^3/uL (0.0-0.3); EOSINOPHILS % (AUTO) 1 % (0-10); HEMATOCRIT 40 % (35-52); HEMOGLOBIN 13.5 G/DL (11.5-16.0); LYMPHOCYTES # (AUTO) 1.6 X 10^3 (1.0-4.0); LYMPHOCYTES % (AUTO) 21 % (12-44); MEAN CORPUSCULAR HEMOGLOBIN 31 PG (25-34); MEAN CORPUSCULAR HGB CONC 34 G/DL (32-36); MEAN CORPUSCULAR VOLUME 91 FL (80-99); MEAN PLATELET VOLUME 10.5 FL (7.4-10.4); MONOCYTES # (AUTO) 0.5 X 10^3 (0.0-1.0); MONOCYTES % (AUTO) 7 % (0-12); NEUTROPHILS # (AUTO) 5.2 X 10^3 (1.8-7.8); NEUTROPHILS % (AUTO) 70 % (42-75); PLATELET COUNT 406 10^3/uL (130-400); RED CELL DISTRIBUTION WIDTH 13.7 % (10.0-14.5); WHITE BLOOD COUNT 7.4 10^3/uL (4.3-11.0)
[2018-10-30 12:28] LABS: ERYTHROCYTE SEDIMENTATION RATE 16 MM/HR (0-20)
== END 2018-10-30 11:49 | disposition home or self-care (01) ==
LOC: EDUNIT# 09:58 → ER 09:58
DX: M25.572 Pain in left ankle and joints of left foot (principal); E03.9 Hypothyroidism, unspecified; F41.9 Anxiety disorder, unspecified; F32.9 Major depressive disorder, single episode, unspecified; Z91.041 Radiographic dye allergy status; Z88.0 Allergy status to penicillin; Z88.6 Allergy status to analgesic agent; Z88.8 Allergy status to other drugs, medicaments and biological substances; Z91.040 Latex allergy status; Z91.048 Other nonmedicinal substance allergy status; Z88.5 Allergy status to narcotic agent; Z90.710 Acquired absence of both cervix and uterus; Z90.89 Acquired absence of other organs; Z98.890 Other specified postprocedural states
CPT/HCPCS: 36415; 73610; 84550; 85025; 85652; 86430